=== PATIENT | male | born 1960 | race African-American/Black ===

== ENCOUNTER → 2024-04-02 | Outpatient (CLI) | payer MEDICARE, MEDICAID, SELFPAY ==
[2024-04-02 10:57] LABS: Basophils % (Auto) 0 % (0-2.5); Eosinophils # (Auto) 0.2 Thou/mm3 (0.0-0.5); Eosinophils % (Auto) 2 % (0-10); Hematocrit 38.7 % (41.0-53.0); Hemoglobin 12.3 g/dL (13.5-16.0); Immature Granulocytes % (Auto) 0 % (0-0); Immature Granulocytes Auto 0.03 Thou/mm3 (0.00-0.00); Lymphocytes # (Auto) 2.1 Thou/mm3 (1.0-4.8); Lymphocytes % (Auto) 24 % (10-50); Mean Corpuscular HGB Conc 31.8 g/dl (31.0-37.0); Mean Corpuscular Hemoglobin 29.1 pg (25.0-35.0); Mean Corpuscular Volume 92 fL (80-100); Monocytes # (Auto) 0.5 Thou/mm3 (0.0-0.8); Monocytes % (Auto) 6 % (0-12); Neutrophils # (Auto) 5.7 Thou/mm3 (1.8-7.7); Neutrophils % (Auto) 66 % (37-80); Nucleated Red Blood Cell % 0 /100 WBC (0); Platelet Count 324 Thou/mm3 (140-440); RDW Standard Deviation 57.4 fL (35.1-43.9); Red Blood Count 4.23 Miln/mm3 (4.50-5.90); White Blood Count 8.6 Thou/mm3 (3.8-10.6)
[2024-04-02 11:16] LABS: Prothrombin Time 10.8 Seconds (9.0-12.2)
== END | disposition home or self-care (01) ==
LOC: COPL 10:13
PROVIDERS: PCP Physician Assistant; Referring Provider Surgery; Visit Provider Surgery
DX: C18.0 Malignant neoplasm of cecum (principal)
CPT/HCPCS: 36415; 85025; 85610; 85730

== ENCOUNTER 2024-04-11 09:29 | Outpatient (RCR) | payer MEDICARE, MEDICAID, SELFPAY | END 2024-04-19 23:59 | disposition home or self-care (01) | LOC: SCTC 09:29 | PROVIDERS: PCP Physician Assistant; Referring Provider Physician Assistant; Visit Provider Internal Medicine Hematology & Oncology | DX: C18.9 Malignant neoplasm of colon, unspecified (principal) ==

== ENCOUNTER → 2024-04-29 | Outpatient (CLI) | payer MEDICARE, MEDICAID, SELFPAY ==
[2024-04-29 09:31] LABS: Basophils % (Auto) 0 % (0-2.5); Eosinophils # (Auto) 0.2 Thou/mm3 (0.0-0.5); Eosinophils % (Auto) 2 % (0-10); Hematocrit 37.3 % (41.0-53.0); Hemoglobin 12.3 g/dL (13.5-16.0); Immature Granulocytes % (Auto) 0 % (0-0); Immature Granulocytes Auto 0.03 Thou/mm3 (0.00-0.00); Lymphocytes # (Auto) 2.5 Thou/mm3 (1.0-4.8); Lymphocytes % (Auto) 27 % (10-50); Mean Corpuscular Volume 91 fL (80-100); Monocytes # (Auto) 0.6 Thou/mm3 (0.0-0.8); Monocytes % (Auto) 6 % (0-12); Neutrophils % (Auto) 65 % (37-80); Nucleated Red Blood Cell % 0 /100 WBC (0); Platelet Count 402 Thou/mm3 (140-440); RDW Standard Deviation 55.1 fL (35.1-43.9); White Blood Count 9.3 Thou/mm3 (3.8-10.6)
[2024-04-29 09:45] LABS: Alanine Aminotransferase 19 U/L (10-49); Albumin, Serum 5.2 gm/dL (3.4-4.8); Albumin/Globulin Ratio 2.6 (1.2-2.2); Alkaline Phosphatase 110 U/L (46-116); Anion Gap 7 (7-16); Aspartate Amino Transferase 14 U/L (0-34); BUN/Creatinine Ratio 9 Ratio (12-20); Bilirubin,Total 0.4 mg/dL (0.3-1.2); Blood Urea Nitrogen 8 mg/dL (9-23); Calcium 10.2 mg/dL (8.3-10.6); Calcium (Corrected) 10.2 mg/dL (8.5-10.1); Carbon Dioxide 29.6 mMol/L (20.0-31.0); Chloride 102 mMol/L (98-107); Creatinine (Component) 0.9 mg/dL (0.6-1.3); Glucose 102 mg/dL (74-106); Osmolality,Calculated 275 (275-295); Potassium 3.7 mMol/L (3.4-5.1); Sodium 139 mMol/L (136-145); Total Protein 7.2 gm/dL (5.7-8.2); eGFR > 60 See Note
[2024-04-29 09:50] LABS: Carcinoembryonic Antigen 6.8 ng/mL (0.0-5.0); Folate 17.33 ng/mL (>5.38); Vitamin B12 540 pg/mL (211-911)
[2024-04-29 10:57] LABS: Ferritin 14 ng/mL (10.5-307.3); Total Iron Binding Capacity 379 mcg/dL (250-425)
[2024-04-29 11:07] LABS: Iron 91 mcg/dL (65-175); Percent Iron Saturation 24 % (20-55); Unsaturated Iron Binding 288 (225-295)
[2024-05-05 06:51] LABS: CA 19-9 Antigen* 26 U/mL (<34)
== END | disposition home or self-care (01) ==
LOC: SCTO 08:24
PROVIDERS: PCP Physician Assistant; Referring Provider Internal Medicine Hematology & Oncology; Visit Provider Internal Medicine Hematology & Oncology
DX: C22.9 Malignant neoplasm of liver, not specified as primary or secondary (principal); C64.9 Malignant neoplasm of unspecified kidney, except renal pelvis; C18.9 Malignant neoplasm of colon, unspecified
CPT/HCPCS: 36415; 80053; 82378; 82607; 82728; 82746; 83540; 83550; 85025; 86301

== ENCOUNTER 2024-05-05 13:15 | Outpatient (RCR) | payer MEDICARE, MEDICAID, SELFPAY ==
--- NOTE | 2024-05-19 01:02 | CTCFLWUP_ITS ---
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 Patient have a history of smoking for 10 years 3 to 4 cigarettes a day quit about 37 years ago and uses marijuana da alfie for last 20 years. Patient lives with his brother and sunvzh-fz-eus. 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 Tumor site cecum 5 x 3.5 x 0.8 cm. Macroscopic tumor perfo ration not seen. Invasive adenocarcinoma low-grade invading into subserosal tissue. 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 amlodipine - 5 mg 1 tab Daily 2. atorvastatin - 40 mg 1 tab Daily 3. multivitamin - 1 tab Daily 4. tamsulosin - 0.4 mg 1 Capsule Daily Medications Last Reconciled by Naomy Tate MA on 05/05/2024 ALLERGIES: No Known Drug Allergies REVIEW OF SYSTEMS: A complete 14-point review of systems was performed and is negative except as noted in interval histo ry. PHYSICAL EXAMINATION: VITAL SIGNS: Temperature?98.2, B/P?120/76, Oxygen?Saturation?98% Weight?138?lbs (Change?since? 4:?-2.8?lbs) PAIN: 0 - No pain ECOG Performance Status: 0 - Asymptomatic and fully active GENERAL APPEARANCE: Appears well, in no apparent distress, appropriately interactive. HEENT: Normocephalic, no temporal wasting, normal conjunctiva, no scleral icterus, normal hearing, li ps without lesions, neck normal range of motion. CARDIOVASCULAR: Not assessed. PULMONARY: Normal respiratory effort, no respiratory distress or use of accessory muscles, speaking i n full sentences, no tachypnea. EXTREMITIES: No pedal edema or cyanosis. SKIN: Normal skin appearance. NEUROLOGIC: Alert and oriented x4. PSHYCHIATRIC: Appropriate affect, mood normal, behavior normal, intact thought and speech. LABORATORY DATA: I have personally reviewed and interpreted each of the patient?s relevant lab tests, abnormal finding s are below: Date 05/10/24 ??WHITE?BLOOD?COUNT?(Thou/mm3) 9.5 ??RED?BLOOD?COUNT?(Miln/mm3) 3.58?L ??HEMOGLOBIN?(gm/dl) 10.9?L ??HEMATOCRIT?(%) 33.1?L ??PLATELET?COUNT?(Thou/mm3) 380 ??NEUTROPHILS?%,?AUTO?(%) 75 ??LYMPH?%,?AUTO?(%) 19 ??NEUTROPHILS,?AUTO?(Thou/mm3) 7.1 ASSESSMENT/PLAN: #1 colon adenocarcinoma Patient have T3 N1 tumor CT abdomen showed renal mass which was biopsied to be renal cancer Patient will need adjuvant chemotherapy Chemotherapy for 6 months with modified FOLFOX Needs CT chest abdomen pelvis for complete staging FANNIE Stable mFOLFOX 6 Oxaliplatin 85 mg/m2 IV, day 1a Leucovorin 400 mg/m2 IV, day 1b 5-FU 400 mg/m2 IV bolus on day 1, followed by 1200 mg/m2 /day x 2 days (total 2400 mg/m2 over 46?48 hours) continuous infusion. Repeat every 2 weeks.1 ORDERS: Cbc,cmp RETURN TO CLINIC: 2 months BILLING AND COMPLIANCE: I reviewed external records from providers outside my specialty as summarized above. I spent a total of 50 minutes on this patient?s care on the day of their visit excluding time spent related to any bi lled procedures. This time includes time spent with the patient as well as time spent documenting in the medical record, reviewing patients records and tests, obtaining history, placing orders, communi cating with other healthcare professionals, counseling the patient, family or caregiver, and/or care coordination for the diagnoses above. Electronically Signed by: Dhaval Guzman MD T: 1:00 AM CC: PCP: Chanelle Ramirze Referring: Chanelle Ramirez This document was completed utilizing speech recognition software. Grammatical errors, random word in sertions, pronoun errors, and incomplete sentences are an occasional consequence of this system due t o software limitations, ambient noise, and hardware issues. Any formal questions or concerns about th e content, text or information contained within the body of this dictation should be directly address ed to the provider for clarification.
== END 2024-05-20 23:59 | disposition home or self-care (01) ==
LOC: SCTC 13:15
PROVIDERS: PCP Physician Assistant; Referring Provider Physician Assistant; Visit Provider Internal Medicine Hematology & Oncology
DX: C18.0 Malignant neoplasm of cecum (principal); C64.2 Malignant neoplasm of left kidney, except renal pelvis; Z87.891 Personal history of nicotine dependence; Z90.49 Acquired absence of other specified parts of digestive tract
CPT/HCPCS: 99212; G0463

== ENCOUNTER 2024-05-09 08:00 | Day surgery (SDC) | payer MEDICARE, MEDICAID, SELFPAY ==
[2024-05-07 09:10] VITALS: BMI 20.7
[2024-05-07 10:46] LABS: Basophils # (Auto) 0.1 Thou/mm3 (0.0-0.2); Basophils % (Auto) 0 % (0-2.5); Eosinophils # (Auto) 0.2 Thou/mm3 (0.0-0.5); Eosinophils % (Auto) 2 % (0-10); Hematocrit 37.2 % (41.0-53.0); Hemoglobin 12.1 g/dL (13.5-16.0); Immature Granulocytes % (Auto) 0 % (0-0); Immature Granulocytes Auto 0.05 Thou/mm3 (0.00-0.00); Lymphocytes # (Auto) 2.4 Thou/mm3 (1.0-4.8); Lymphocytes % (Auto) 17 % (10-50); Mean Corpuscular HGB Conc 32.5 g/dl (31.0-37.0); Mean Corpuscular Hemoglobin 30.3 pg (25.0-35.0); Mean Corpuscular Volume 93 fL (80-100); Monocytes # (Auto) 0.8 Thou/mm3 (0.0-0.8); Monocytes % (Auto) 6 % (0-12); Neutrophils # (Auto) 10.4 Thou/mm3 (1.8-7.7); Neutrophils % (Auto) 75 % (37-80); Nucleated Red Blood Cell % 0 /100 WBC (0); Platelet Count 411 Thou/mm3 (140-440); RDW Standard Deviation 55.3 fL (35.1-43.9); White Blood Count 13.9 Thou/mm3 (3.8-10.6)
[2024-05-07 11:02] LABS: Prothrombin Time 11.1 Seconds (9.0-12.2)
[2024-05-07 11:07] LABS: Alanine Aminotransferase 17 U/L (10-49); Albumin/Globulin Ratio 2.1 (1.2-2.2); Alkaline Phosphatase 109 U/L (46-116); Anion Gap 7 (7-16); Aspartate Amino Transferase 12 U/L (0-34); BUN/Creatinine Ratio 6 Ratio (12-20); Bilirubin,Total 0.5 mg/dL (0.3-1.2); Blood Urea Nitrogen < 5 mg/dL (9-23); Calcium 10.3 mg/dL (8.3-10.6); Calcium (Corrected) 10.3 mg/dL (8.5-10.1); Carbon Dioxide 29.6 mMol/L (20.0-31.0); Chloride 104 mMol/L (98-107); Creatinine (Component) 0.8 mg/dL (0.6-1.3); Globulin 2.4 gm/dL (2.3-3.5); Glucose 104 mg/dL (74-106); Osmolality,Calculated 278 (275-295); Potassium 4.6 mMol/L (3.4-5.1); Sodium 141 mMol/L (136-145); Total Protein 7.4 gm/dL (5.7-8.2); eGFR > 60 See Note
--- NOTE | 2024-05-07 11:58 | SUR.PREOP ---
WBC 13.9, Dr Lamb notified and ok to proceed.
[2024-05-09] VITALS (27 sets, daily range): BP systolic 97–142; BP diastolic 57–88; PULSE 56–87; RESP 12–20; TEMP 36.1–36.9; O2SAT 97–100; BMI 20.5
--- NOTE | 2024-05-09 | XR_ITS ---
Examination: IR fluoroscopically guided placement right chest tube Fluoroscopy AP chest single view Exam date and time: 12/08/2023 1357 hours INDICATIONS: Pneumothorax post Port-A-Cath placement today requiring chest tube placement TECHNIQUE AND FINDINGS: Informed consent provided. Timeout performed. Skin prepped over the lateral chest and sterile drape applied hand hygiene 1% lidocaine administered for local anesthesia Successful fluoroscopically guided insertion 9 Indian Heimlich chest tube Fluoroscopy 0.4 minute radiation dose 1.15 milligray 1 spot fluoroscopic chest film Estimated blood loss 2 cc IMPRESSION: Successful IR fluoroscopically guided placement right chest tube
--- NOTE | 2024-05-09 09:34 | CHAP ---
Patient expressed gratitude for prayer before their procedure.
--- NOTE | 2024-05-09 10:30 | XR_ITS ---
Examination: AP chest single view TECHNIQUE: AP portable supine chest single view Exam date and time: May 09, 2024 1155 hours INDICATIONS: Port-A-Cath insertion today. FINDINGS: Right subclavian Port-A-Cath tip right atrium No pneumothorax IMPRESSION: Right subclavian Port-A-Cath tip right atrium
--- NOTE | 2024-05-09 12:22 | SUR.PHASEI ---
1222: Pt. wakes to name then drifts back to sleep, vitals stable, breathing unlabored, no complaint of pain or nausea, dressing to right upper chest CDI, no active bleed noted, report received from MD De La Paz and Zayra WILLINGHAM.
--- NOTE | 2024-05-09 12:22 | XR_ITS ---
Examination: AP chest single view Technique one AP portable upright chest single view Exam date and time: May 09, 2024 1251 hours INDICATIONS: Post Port-A-Cath insertion today. FINDINGS: Right apical lateral pneumothorax, estimated 50% No significant shift of the trachea to the left Right subclavian Port-A-Cath tip satisfactory position IMPRESSION: Right apical lateral pneumothorax
--- NOTE | 2024-05-09 12:34 | SUR.PHASEI ---
pt drowsy but arouses to verbal commands, vitals stable, breathing unlabored, no complaint of pain or nausea, dressing to right upper chest clean, dry, and intact, report from Aurora WILLINGHAM
--- NOTE | 2024-05-09 12:34 | SUR.PHASEI ---
1234: Pt. AAOx4, vitals stable, breathing unlabored no complaint of pain or nausea, dressing to right upper chest CDI, currently waiting for XR, report given to Vandana Mcfarland RN to resume care of pt.
--- NOTE | 2024-05-09 12:45 | SUR.PHASEI ---
pt tolerating ice chips without difficulty swallowing or n/v
--- NOTE | 2024-05-09 12:50 | SUR.PHASEII ---
xray at bedside
--- NOTE | 2024-05-09 13:05 | SUR.PHASEII ---
Dr Lamb at bedside, per Dr Lamb; keep pt in high fowlers position, hold in PACU until further instructions given; awaiting decision to admit.
--- NOTE | 2024-05-09 13:12 | SUR.PHASEII ---
pt awake, alert, able to follow commands, breathing unlabored, dressing to right upper chest clean, dry, and intact, report to Aurora WILLINGHAM
--- NOTE | 2024-05-09 13:53 | SUR.PHASEII ---
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 for insertion of chest tube. Pt. is to come back to recovery after recovery from chemical laboratory tester. Pt. currently AAOx4, vitals stable, breathing unlabored, no complaint of pain or nausea, dressing to right upper chest CDI, no active bleed noted. Pt. brother aware of whats going on and gave verbal consent with RN witness to proceed with chest tube insertion.
[2024-05-09] MEDS: LIDOCAINE INJ PF 1% 30 ML VIAL INFL (14:10)
[2024-05-09] MEDS: fentaNYL CIT INJ 50 mCg/ML AMP 2ML IVP (14:27)
--- NOTE | 2024-05-09 14:47 | SUR.PHASEII ---
1447: Pt. returned from vp lab, chest tube on right side, set up to low-moderate intermitten suction, pt. AAOx4, vitals stable, breathing unlabored, no complaint of pain or nausea, dressing to right upper chest CDI ,no active bleed noted.
--- NOTE | 2024-05-09 14:47 | SUR.PHASEII ---
1447: Report received from Danna WILLINGHAM about chest tube placement.
--- NOTE | 2024-05-09 15:02 | XR_ITS ---
Examination: AP chest single view Technique one AP portable upright chest single view Exam date and time: May 09, 2024 1506 hours COMPARISON: May 09, 2024 1247 hours INDICATIONS: Pneumothorax post Port-A-Cath placement today FINDINGS: Right chest tube noted projecting in the lower medial right hemithorax Minute right apical pneumothorax less than 3% IMPRESSION: Satisfactory expansion right lung
--- NOTE | 2024-05-09 15:25 | PD.SUROPNT ---
Date of Procedure 05/09/24 Pre Op Diagnosis Carcinoma of the colon requiring chemotherapy Post Op Diagnosis Same Procedure Insertion of a Port-A-Cath through the right subclavian vein Findings Patient was found to have patent subclavian vein which was used for access Procedure Description After the patient was brought to the operating room he was placed in supine position. Site-Rite ultrasound was used to identify the right subclavian vein and I chose this for insertion of the Port-A-Cath. After the patient's chest and neck were prepped with chloreprep solution and draped I used a mini stick to get into the left subclavian vein. Then I passed a small guidewire measuring 0.018 inch in diameter into the vein. Then this was switched over to a catheter to accommodate larger guidewire measuring 0.035 inches in diameter which was basically a J-wire. Then I used a 9 [place] Islander valved vessel dilator over the guidewire which was then pulled out. Then I introduced a 8 [place] Islander polyurethane catheter from the [employer] and positioned it on the distal part of the superior vena cava. An x-ray was obtained to confirm the position of the tip. The tip was about 22 cm from the entry site then I made a small pocket 5 cm's below the entry site on the right chest below the clavicle to accommodate the port after injecting local anesthesia with 1% Xylocaine. Then I tunneled the polyurethane catheter from the entry site to this pocket in the chest wall and I connected it to low-profile Dignity port from [employer] using a catheter lock. Excellent blood return was obtained at the end of the procedure and this was flushed with heparinized saline. Then the port was attached to the chest wall muscle using 0 Vicryl sutures. Subcutaneous tissues was closed with 3-0 chromic and the skin by 5-0 nylon stitches. Dressing was applied with Adaptic and 4 x 4 and the patient tolerated the procedure well and left operating room in stable condition. At the end of the procedure chest x-ray was obtained in the recovery room which showed a small pneumothorax on therefore patient will be admitted to the hospital after chest tube insertion. This chest tube will be inserted by the IR today Anesthesia other (General LMA) Pathology / specimen None Estimated Blood Loss 20 Surgeon Conrado Haywood MD Surgical Staff Operation Date: 12/20/24 10:15 Case Staff Anesthesiologist: Duy De La Paz RN First Assistant: Deepika Ray
[2024-05-09] MEDS: KETOROLAC INJ 30 MG/ML VIAL IVP ×2 (15:34→21:20)
--- NOTE | 2024-05-09 18:29 | SUR.PHASEII ---
1829:received report at this time. pt alert and oriented. no c/o pain or discomfort. no s/s of resp. distress or discomfort. dressing to right upper chest clean, dry and intact. no bleeding from dressing. chest tube in plac and intact.
--- NOTE | 2024-05-09 19:32 | SUR.PHASEII ---
report given to TARSHA Dan.
--- NOTE | 2024-05-09 19:37 | SUR.PHASEII ---
Called brother april for room update.
--- NOTE | 2024-05-09 19:40 | SUR.PHASEII ---
called Dr. Haywood for room update.
--- NOTE | 2024-05-09 19:45 | SUR.PHASEII ---
1944: pt transferred to room 368 via rney. pt alert and oriented. no c/o pain or discomfort. no s/s of resp. distress or discomfort. dressing to right upper chest clean, dry and intact. no bleeding from dressing. chest tube in place and intact.
--- NOTE | 2024-05-09 20:00 | SUR.PHASEII ---
2000: pt transferred to room 368 via rowen. pt alert and oriented. no c/o pain or discomfort. no s/s of resp. distress or discomfort. dressing to right upper chest clean, dry and intact. no bleeding from dressing. chest tube in place and intact.
[2024-05-09] MEDS: SODIUM CHLORIDE 0.9% 1000 ML 1,000 ML 50 ML IV (21:27)
[2024-05-09] MEDS: ACETAMINOPHEN 325 MG TABLET 650 MG PO (23:57)
[2024-05-10] VITALS: BP 155/91; PULSE 69; RESP 18; TEMP 36.8; O2SAT 99
[2024-05-10 04:00] VITALS: BP 129/77; PULSE 71; RESP 17; TEMP 37.3; O2SAT 99
[2024-05-10 05:22] LABS: Basophils % (Auto) 0 % (0-2.5); Eosinophils # (Auto) 0.1 Thou/mm3 (0.0-0.5); Eosinophils % (Auto) 1 % (0-10); Hematocrit 33.1 % (41.0-53.0); Hemoglobin 10.9 g/dL (13.5-16.0); Immature Granulocytes % (Auto) 0 % (0-0); Immature Granulocytes Auto 0.03 Thou/mm3 (0.00-0.00); Lymphocytes # (Auto) 1.8 Thou/mm3 (1.0-4.8); Lymphocytes % (Auto) 19 % (10-50); Mean Corpuscular HGB Conc 32.9 g/dl (31.0-37.0); Mean Corpuscular Hemoglobin 30.4 pg (25.0-35.0); Mean Corpuscular Volume 93 fL (80-100); Monocytes # (Auto) 0.5 Thou/mm3 (0.0-0.8); Monocytes % (Auto) 5 % (0-12); Neutrophils # (Auto) 7.1 Thou/mm3 (1.8-7.7); Neutrophils % (Auto) 75 % (37-80); Nucleated Red Blood Cell % 0 /100 WBC (0); Platelet Count 380 Thou/mm3 (140-440); RDW Standard Deviation 52.1 fL (35.1-43.9); Red Blood Count 3.58 Miln/mm3 (4.50-5.90); White Blood Count 9.5 Thou/mm3 (3.8-10.6)
--- NOTE | 2024-05-10 05:57 | PC.NURSE ---
1952 pt arrived to floor gcs 15. No c/o pain ro discomfort respirations even and unlabored 0 sob. PT s/p pneumo after port a cath placement. Chest tube is one way valve suctioned to LIS water bubbling. Occlusive dressing and meghna clamps at bedside. Safety reviewed with patient call light with in reach.
[2024-05-10 08:00] VITALS: BP 155/85; PULSE 86; RESP 19; TEMP 36.7; O2SAT 99
[2024-05-10 12:00] VITALS: BP 138/83; PULSE 80; RESP 17; TEMP 37.1; O2SAT 100
--- NOTE | 2024-05-10 12:04 | XR_ITS ---
Examination: AP chest single view Technique one AP portable upright chest single view Exam date and time: 12/09/2023 1211 hrs. Comparison May 09, 2024 Indications: History right pneumothorax post chest tube placement Findings: Right chest tube noted medial lower right hemithorax Full expansion right lung Normal heart size Impression: Full expansion right lung
--- NOTE | 2024-05-10 12:39 | PD.SURPROG ---
Documentation for date of: 05/10/24 Subjective Subjective Narrative: The patient has no difficulty in breathing but is complaining of some chest pain due to the tube Exam Vital Signs Temp Pulse Resp BP Pulse Ox O2 Del Method O2 Flow Rate 98.1 F 86 19 155/85 H 99 Room Air 5 05/10/24 08:00 05/10/24 08:00 05/10/24 08:00 05/10/24 08:00 05/10/24 08:00 05/10/24 08:00 05/09/24 14:31 His vital signs are normal and his respiratory rate is around 19 Routine Respiratory Exam Comments: Auscultation revealed no significant change on breath sounds on either side Results Results: Imaging Imaging narrative: Repeat x-ray this morning still showed a small pneumothorax in the apex which has not changed after the tube was inserted. Assessment & Plan Assessment Additional comments: Impression: Small apical pneumothorax persistent in spite of chest tube Plan Plan: We shall continue suction on the Pleur-evac Repeat a chest x-ray today. Keep the patient for another day Procedures Procedures Insertion of a Port-A-Cath through the right subclavian vein
[2024-05-10] MEDS: HYDROcodone/APAP 5/325 TABLET 1 TAB PO (15:20)
[2024-05-10 16:00] VITALS: BP 133/82; PULSE 77; RESP 17; TEMP 37.1; O2SAT 100
--- NOTE | 2024-05-10 17:35 | XR_ITS ---
Examination: AP chest single view Technique one AP portable semiupright chest single view Exam date and time: May 10, 2024 1745 hrs. Comparison May 10, 2024 12:11 PM Indications: History pneumothorax post Port-A-Cath placement, post chest tube placement Findings: Right and left lungs fully expanded Stable position chest tube Normal heart size Impression: Right and left lungs fully expanded
--- NOTE | 2024-05-10 18:28 | PD.SURPROG ---
Documentation for date of: 05/10/24 Subjective Subjective Narrative: Patient is breathing well Exam Vital Signs Temp Pulse Resp BP Pulse Ox O2 Del Method O2 Flow Rate 98.7 F 77 17 133/82 H 100 Room Air 5 05/10/24 16:00 05/10/24 16:00 05/10/24 16:00 05/10/24 16:00 05/10/24 16:00 05/10/24 16:00 05/09/24 14:31 Assessment & Plan Assessment Additional comments: Chest x-ray showed persistent expansion of the right lung Plan Chest tube pulled out. Patient wants to stay for 1 more night rather than going home now. Procedures Procedures Insertion of a Port-A-Cath through the right subclavian vein
--- NOTE | 2024-05-10 18:28 | PC.NURSE ---
Dr. Lamb at bedside, removed chest tube. Pt tolerated removal well.
[2024-05-10 20:00] VITALS: BP 126/76; PULSE 76; RESP 18; TEMP 36.4; O2SAT 100
[2024-05-11] VITALS: BP 109/70; PULSE 72; RESP 20; TEMP 36.9; O2SAT 98
[2024-05-11 04:00] VITALS: BP 114/77; PULSE 72; PULSE 77; RESP 18; TEMP 36.4; O2SAT 100
--- NOTE | 2024-05-11 06:22 | XR_ITS ---
Examination: AP chest single view Technique one AP portable upright chest single view Exam date and time: May 11, 2024 0641 hrs. Comparison May 10, 2024 Indications: History right pneumothorax this week post chest tube placement Findings: Right chest tube has been removed compared with May 10, 2024 Right lung fully expanded Right subclavian Port-A-Cath tip satisfactory position Impression: Status post removal right chest tube with full expansion right and left lungs
[2024-05-11 07:32] VITALS: BP 128/72; PULSE 71; RESP 19; TEMP 36.5; O2SAT 100
--- NOTE | 2024-05-11 08:20 | PD.SURPROG ---
Documentation for date of: 05/11/24 Subjective Subjective Narrative: The patient is feeling better today after the chest tube was removed last night. He does not have any pain and is breathing well and his oxygen saturation is 100% Exam Vital Signs Temp Pulse Resp BP Pulse Ox O2 Del Method O2 Flow Rate 97.7 F 71 19 128/72 100 Room Air 5 05/11/24 07:32 05/11/24 07:32 05/11/24 07:32 05/11/24 07:32 05/11/24 07:32 05/11/24 07:32 05/09/24 14:31 Results Results: Imaging Imaging narrative: Chest x-ray done this morning showed expanded right lung Assessment & Plan Assessment Additional comments: Impression: Resolved pneumothorax right side Plan Plan: We shall discharge patient today and follow him up in 2 weeks in my office Procedures Procedures Insertion of a Port-A-Cath through the right subclavian vein
--- NOTE | 2024-05-12 12:20 | ESDS_ITS ---
RE: CONCHITA YEUNG : 1960 DATE OF ADMISSION: 05/11/2024 DATE OF DISCHARGE: 05/11/2024 08:58 DATE OF ADMISSION: 04/09/2024 DATE OF DISCHARGE: 04/11/2024 FINAL DIAGNOSES: Pneumothorax following Portacath insertion on the right side. PROCEDURE DONE: Insertion of Portacath. OTHER DIAGNOSIS: Carcinoma of the colon, treated with sigmoid colon resection. HOSPITAL COURSE: This patient was admitted for observation after realizing that patient has developed a pneumothorax following subclavian puncture used for Portacath insertion. Therefore, he had a small chest tube inserted by the radiologist and patient was kept in the hospital for another day. Chest tube was removed on 04/10/2024, but the patient was still experiencing pain and did not want to go home. Therefore, he was observed overnight and chest x-ray was repeated on 04/11/2024, which was showing well-expanded right lung. The patient is discharged to home and he was advised to resume all prehospital medications and was taking Tylenol for the pain. The patient will be seen in 2 weeks for suture removal. DT: 08:25:40 TT: 15:19:00 Ref: [id number] - TID: [id number]
== END 2024-05-11 08:58 | disposition home or self-care (01) ==
LOC: S2EX 12:41 → S3SX 05-11 07:48
PROVIDERS: PCP Physician Assistant; Referring Provider Surgery; Visit Provider Surgery
PROC: (CPT 36561; principal; 2024-05-09 10:00)
DX: I87.1 Compression of vein (principal); C18.9 Malignant neoplasm of colon, unspecified; J93.9 Pneumothorax, unspecified; C18.7 Malignant neoplasm of sigmoid colon
CPT/HCPCS: 36561; 36415; 71045; 71046; 80053; 85025; 85610; 85730; 94664; A4217; A4649; C1894; J1643; J1885; J2250; J2371; J2405; J2704; J2765; J3010; J3490; J7030; A9270; J1644

== ENCOUNTER → 2024-05-30 | Outpatient (CLI) | payer MEDICARE, MEDICAID, SELFPAY ==
[2024-05-30 12:46] LABS: Prostate Specific Antigen 9.25 ng/mL (0-4.00)
== END | disposition home or self-care (01) ==
PROVIDERS: PCP Physician Assistant; Referring Provider Urology; Visit Provider Urology
DX: C61 Malignant neoplasm of prostate (principal)
CPT/HCPCS: 36415; 84153

== ENCOUNTER → 2024-05-30 | Outpatient (BNVA) | payer MEDICARE, MEDICAID, SELFPAY | END | disposition home or self-care (01) | PROVIDERS: PCP Physician Assistant; Referring Provider Physician Assistant; Visit Provider Urology | DX: N40.1 Benign prostatic hyperplasia with lower urinary tract symptoms (principal); N13.8 Other obstructive and reflux uropathy; C61 Malignant neoplasm of prostate; C18.0 Malignant neoplasm of cecum; C64.2 Malignant neoplasm of left kidney, except renal pelvis; I10 Essential (primary) hypertension; E78.00 Pure hypercholesterolemia, unspecified | CPT/HCPCS: 81003; 99212; G0463 ==

== ENCOUNTER → 2024-07-14 | Outpatient (BNVA) | payer MEDICARE, MEDICAID, SELFPAY | END | disposition home or self-care (01) | PROVIDERS: PCP Physician Assistant; Referring Provider Physician Assistant; Visit Provider Urology | DX: N40.1 Benign prostatic hyperplasia with lower urinary tract symptoms (principal); N13.8 Other obstructive and reflux uropathy; C61 Malignant neoplasm of prostate; C64.2 Malignant neoplasm of left kidney, except renal pelvis; C18.0 Malignant neoplasm of cecum; I10 Essential (primary) hypertension; E78.00 Pure hypercholesterolemia, unspecified | CPT/HCPCS: 99212; G0463 ==

== ENCOUNTER → 2024-07-25 | Outpatient (CLI) | payer MEDICARE, MEDICAID, SELFPAY ==
--- NOTE | 2024-07-25 12:23 | XR_ITS ---
Examination: PA lateral chest 2 views TECHNIQUE: Upright PA lateral chest 2 views Exam date and time: June 27, 2024 1239 hours Comparison May 11, 2024 INDICATIONS: History pneumothorax FINDINGS: Normal heart size Right subclavian Port-A-Cath tip satisfactory position Lungs well expanded No pneumonia or pulmonary edema IMPRESSION: No active disease
== END | disposition home or self-care (01) ==
PROVIDERS: PCP Physician Assistant; Referring Provider Specialist; Visit Provider Specialist
DX: R06.02 Shortness of breath (principal)
CPT/HCPCS: 71046

== ENCOUNTER → 2024-08-04 | Outpatient (CLI) | payer MEDICARE, MEDICAID, SELFPAY ==
--- NOTE | 2024-08-04 09:30 | XR_ITS ---
Examination: MRI abdomen with intravenous contrast. MRI abdomen without intravenous contrast. Date and time of exam: August 04, 2024 1021 hours Comparison MRI abdomen pre and postcontrast October 17, 2023 INDICATIONS: Dryness in the mouth, chemotherapy colon kidney cancer, MR abdomen October 17, 2023, 10 mm enhancing solid tumor medial right lobe of the liver Technique: Multiple axial, sagittal and coronal sections of the abdomen obtained. Transverse images, TR 6020, TE 107. T1 weighted transverse images, TR 582, TE 9.5. T2-weighted sagittal images, TR 4000, TE 105. T2-weighted sagittal images, TR 4000, TE 5. Coronal images, TR 4210, TE 107. Axial and coronal images are obtained post 19 cc intravenous injection, gadolinium. Findings: Small multiple liver cysts Spleen not enlarged Aorta normal size No abdominal lymphadenopathy No ascites Stable 10 mm weakly enhancing lesion medial right lobe of the liver On this study enhancing mass anterior right lobe of the liver, 17 mm, axial image 32 Posterior enhancing solid mass left kidney again noted, 21 mm IMPRESSION: Stable 10 mm weakly enhancing lesion medial right lobe of the liver compared with the MRI abdomen October 17, 2023 On this study suspicious for 17 mm weakly enhancing lesion anterior right lobe of the liver, not depicted on the MRI abdomen October 17, 2023 Stable posterior enhancing solid mass left kidney, 21 mm, compared with October 17, 2023
== END | disposition home or self-care (01) ==
PROVIDERS: PCP Physician Assistant; Referring Provider Internal Medicine Hematology & Oncology; Visit Provider Internal Medicine Hematology & Oncology
DX: K76.89 Other specified diseases of liver (principal); N28.89 Other specified disorders of kidney and ureter; C22.9 Malignant neoplasm of liver, not specified as primary or secondary; C64.9 Malignant neoplasm of unspecified kidney, except renal pelvis
CPT/HCPCS: 74183; A4699; A9579

== ENCOUNTER 2024-08-14 10:43 | Outpatient (RCR) | payer MEDICARE, MEDICAID, SELFPAY ==
[2024-07-28 10:24] LABS: Basophils % (Auto) 1 % (0-2.5); Eosinophils # (Auto) 0.1 Thou/mm3 (0.0-0.5); Eosinophils % (Auto) 2 % (0-10); Hematocrit 32.2 % (41.0-53.0); Hemoglobin 10.7 g/dL (13.5-16.0); Immature Granulocytes % (Auto) 1 % (0-0); Immature Granulocytes Auto 0.03 Thou/mm3 (0.00-0.00); Lymphocytes # (Auto) 1.9 Thou/mm3 (1.0-4.8); Lymphocytes % (Auto) 32 % (10-50); Mean Corpuscular HGB Conc 33.2 g/dl (31.0-37.0); Mean Corpuscular Hemoglobin 30.6 pg (25.0-35.0); Mean Corpuscular Volume 92 fL (80-100); Monocytes # (Auto) 0.6 Thou/mm3 (0.0-0.8); Monocytes % (Auto) 9 % (0-12); Neutrophils # (Auto) 3.4 Thou/mm3 (1.8-7.7); Neutrophils % (Auto) 56 % (37-80); Nucleated Red Blood Cell % 0 /100 WBC (0); Platelet Count 217 Thou/mm3 (140-440); RDW Standard Deviation 50.1 fL (35.1-43.9); White Blood Count 6.1 Thou/mm3 (3.8-10.6)
[2024-07-28 10:45] LABS: Carcinoembryonic Antigen 11.6 ng/mL (0.0-5.0)
[2024-07-28 10:52] LABS: Alanine Aminotransferase 36 U/L (10-49); Albumin, Serum 4.4 gm/dL (3.4-4.8); Albumin/Globulin Ratio 1.9 (1.2-2.2); Alkaline Phosphatase 92 U/L (46-116); Anion Gap 7 (7-16); Aspartate Amino Transferase 28 U/L (0-34); BUN/Creatinine Ratio 13 Ratio (12-20); Bilirubin,Total 0.5 mg/dL (0.3-1.2); Blood Urea Nitrogen 10 mg/dL (9-23); Calcium 9.7 mg/dL (8.3-10.6); Calcium (Corrected) 9.7 mg/dL (8.5-10.1); Carbon Dioxide 27.2 mMol/L (20.0-31.0); Chloride 106 mMol/L (98-107); Creatinine (Component) 0.8 mg/dL (0.6-1.3); Globulin 2.3 gm/dL (2.3-3.5); Glucose 95 mg/dL (74-106); Osmolality,Calculated 278 (275-295); Potassium 4.1 mMol/L (3.4-5.1); Sodium 140 mMol/L (136-145); Total Protein 6.7 gm/dL (5.7-8.2); eGFR > 60 See Note
[2024-08-11 14:22] LABS: Basophils % (Auto) 1 % (0-2.5); Eosinophils # (Auto) 0.1 Thou/mm3 (0.0-0.5); Eosinophils % (Auto) 1 % (0-10); Hematocrit 33.6 % (41.0-53.0); Immature Granulocytes % (Auto) 0 % (0-0); Immature Granulocytes Auto 0.01 Thou/mm3 (0.00-0.00); Lymphocytes # (Auto) 2.1 Thou/mm3 (1.0-4.8); Lymphocytes % (Auto) 40 % (10-50); Mean Corpuscular HGB Conc 32.7 g/dl (31.0-37.0); Mean Corpuscular Volume 95 fL (80-100); Monocytes # (Auto) 0.5 Thou/mm3 (0.0-0.8); Monocytes % (Auto) 9 % (0-12); Neutrophils # (Auto) 2.7 Thou/mm3 (1.8-7.7); Neutrophils % (Auto) 50 % (37-80); Nucleated Red Blood Cell # 0.02 Thou/mm3 (0.00-0.00); Nucleated Red Blood Cell % 0 /100 WBC (0); Platelet Count 181 Thou/mm3 (140-440); RDW Standard Deviation 58.4 fL (35.1-43.9); Red Blood Count 3.55 Miln/mm3 (4.50-5.90); White Blood Count 5.4 Thou/mm3 (3.8-10.6)
[2024-08-11 14:38] LABS: Alanine Aminotransferase 33 U/L (10-49); Albumin, Serum 4.5 gm/dL (3.4-4.8); Alkaline Phosphatase 95 U/L (46-116); Anion Gap 10 (7-16); Aspartate Amino Transferase 28 U/L (0-34); BUN/Creatinine Ratio 13 Ratio (12-20); Bilirubin,Total 0.4 mg/dL (0.3-1.2); Blood Urea Nitrogen 9 mg/dL (9-23); Calcium 10.1 mg/dL (8.3-10.6); Calcium (Corrected) 10.1 mg/dL (8.5-10.1); Carbon Dioxide 27.6 mMol/L (20.0-31.0); Chloride 104 mMol/L (98-107); Creatinine (Component) 0.7 mg/dL (0.6-1.3); Globulin 2.3 gm/dL (2.3-3.5); Glucose 87 mg/dL (74-106); Osmolality,Calculated 280 (275-295); Potassium 3.7 mMol/L (3.4-5.1); Sodium 142 mMol/L (136-145); Total Protein 6.8 gm/dL (5.7-8.2); eGFR > 60 See Note
[2024-08-11 14:47] LABS: Carcinoembryonic Antigen 11.5 ng/mL (0.0-5.0)
== END 2024-08-18 23:59 | disposition home or self-care (01) ==
LOC: SCTC 10:43
PROVIDERS: PCP Physician Assistant; Referring Provider Physician Assistant; Visit Provider Internal Medicine Hematology & Oncology
DX: Z51.11 Encounter for antineoplastic chemotherapy (principal); C18.0 Malignant neoplasm of cecum; C64.2 Malignant neoplasm of left kidney, except renal pelvis
CPT/HCPCS: 36591; 80053; 82378; 85025; 96366; 96367; 96368; 96411; 96413; 96415; 96416; A4216; J0640; J1100; J1453; J1642; J2405; J7050; J7060; J9190; J9263

== ENCOUNTER → 2024-08-20 | Outpatient (CLI) | payer MEDICARE, MEDICAID, SELFPAY ==
--- NOTE | 2024-08-20 10:00 | XR_ITS ---
Examination: CT chest with intravenous contrast CT abdomen with intravenous contrast CT pelvis with intravenous contrast CT chest without intravenous contrast CT abdomen without intravenous contrast CT pelvis without intravenous contrast 2-D coronal and sagittal reconstructions Time of exam: August 20, 2024 0957 hours Comparison MR abdomen August 04, 2024, CT abdomen pelvis April 08, 2024 INDICATIONS: Diagnosis malignant neoplasm of the colon September 2023, also diagnosis prostate cancer, CT abdomen April 08, 2024 10 mm medial right lobe liver lesion, solid enhancing posterior left renal tumor 25 mm, 10 mm between enhancing lesion medial right lobe the liver on MRI abdomen August 04, 2024, posterior enhancing solid mass left kidney 21 mm on MRI abdomen August 04, 2024 restaging CTDI: vol (mGy) : 16.2 DLP: (mGycm): 921 Technique: Multiple axial images of the chest, abdomen and pelvis with intravenous contrast, 3.0 mm slice thickness. Images obtained post intravenous injection Isovue 370 60 cc. 2-D sagittal and coronal reconstructions. Low dose protocols were performed. One or more of the following dose reduction techniques were used; automated exposure control, adjustment of the mA and/or KV according to patient size, use of iterative reconstruction technique. Findings: No thoracic aortic aneurysm dilatation or dissection No pulmonary artery filling defects Moderate calcification left anterior descending coronary artery No paratracheal tracheobronchial or bronchopulmonary adenopathy 2 mm pulmonary nodule right upper lobe axial image 89 No pneumonia or pulmonary edema or pleural disease Multiple hepatic cysts, the largest lateral right lobe the liver 13 mm Stable lesion medial right lobe of the liver [address] abdomen pelvis April 08, 2024 This lesion shows peripheral nodular enhancement on the current study characteristic for hemangioma Subtle lesion posterior margin left kidney again noted, measuring 22 mm in maximum transverse dimension compared to 21 mm on MRI abdomen August 04 2024 No interval abdominal or pelvic lymphadenopathy No bowel obstruction Colonic diverticulosis Nonspecific colitis pattern involving sigmoid colon 13 mm enhancing left prostate nodule axial image 298 IMPRESSION: No mediastinal lymphadenopathy 2 mm pulmonary nodule right upper lobe, with this study as baseline recommend 6 month follow-up CT chest without contrast Stable lesion medial right lobe of the liver, 10 mm, compared to [address] abdomen study April 08, 2024, this lesion shows peripheral nodular enhancement on this study characteristic for hemangioma Stable solid lesion posterior left lobe of the liver, 22 mm in maximum transverse dimension compared to 21 mm on MRI abdomen August 04, 2024 13 mm enhancing left prostate nodule, recommend transrectal prostate sonography follow-up
== END | disposition home or self-care (01) ==
PROVIDERS: PCP Physician Assistant; Referring Provider Internal Medicine Hematology & Oncology; Visit Provider Internal Medicine Hematology & Oncology
DX: R91.8 Other nonspecific abnormal finding of lung field (principal); K76.89 Other specified diseases of liver; N42.89 Other specified disorders of prostate; C22.9 Malignant neoplasm of liver, not specified as primary or secondary; C64.9 Malignant neoplasm of unspecified kidney, except renal pelvis; C18.9 Malignant neoplasm of colon, unspecified
CPT/HCPCS: 71270; 74178; A4649; Q9967

== ENCOUNTER → 2024-08-22 | Outpatient (BNVA) | payer MEDICARE, MEDICAID, SELFPAY | END | disposition home or self-care (01) | PROVIDERS: PCP Physician Assistant; Referring Provider Physician Assistant; Visit Provider Urology | DX: N35.819 Other urethral stricture, male, unspecified site (principal); N32.89 Other specified disorders of bladder; N40.1 Benign prostatic hyperplasia with lower urinary tract symptoms; N13.8 Other obstructive and reflux uropathy; C61 Malignant neoplasm of prostate; C64.2 Malignant neoplasm of left kidney, except renal pelvis; I10 Essential (primary) hypertension; E78.00 Pure hypercholesterolemia, unspecified | CPT/HCPCS: 52000; 81003; 96372; A4217; A4649; C1894; J1580; A9270 ==

== ENCOUNTER → 2024-09-05 | Outpatient (BNVA) | payer MEDICARE, MEDICAID, SELFPAY | END | disposition home or self-care (01) | PROVIDERS: PCP Physician Assistant; Referring Provider Physician Assistant; Visit Provider Student in an Organized Health Care Education/Training Program | DX: Z76.89 Persons encountering health services in other specified circumstances (principal) | CPT/HCPCS: 99212; G0463 ==

== ENCOUNTER 2024-09-17 09:17 | Outpatient (RCR) | payer MEDICARE, MEDICAID, SELFPAY ==
[2024-08-25 10:55] LABS: Basophils % (Auto) 1 % (0-2.5); Eosinophils # (Auto) 0.1 Thou/mm3 (0.0-0.5); Eosinophils % (Auto) 1 % (0-10); Hematocrit 32.2 % (41.0-53.0); Hemoglobin 10.8 g/dL (13.5-16.0); Immature Granulocytes % (Auto) 0 % (0-0); Immature Granulocytes Auto 0.02 Thou/mm3 (0.00-0.00); Lymphocytes # (Auto) 1.8 Thou/mm3 (1.0-4.8); Lymphocytes % (Auto) 36 % (10-50); Mean Corpuscular HGB Conc 33.5 g/dl (31.0-37.0); Mean Corpuscular Hemoglobin 31.8 pg (25.0-35.0); Mean Corpuscular Volume 95 fL (80-100); Monocytes # (Auto) 0.7 Thou/mm3 (0.0-0.8); Monocytes % (Auto) 13 % (0-12); Neutrophils # (Auto) 2.4 Thou/mm3 (1.8-7.7); Neutrophils % (Auto) 48 % (37-80); Nucleated Red Blood Cell % 0 /100 WBC (0); Platelet Count 189 Thou/mm3 (140-440); White Blood Count 4.9 Thou/mm3 (3.8-10.6)
[2024-08-25 11:22] LABS: Carcinoembryonic Antigen 13.5 ng/mL (0.0-5.0)
[2024-08-25 11:36] LABS: Alanine Aminotransferase 37 U/L (10-49); Albumin, Serum 4.3 gm/dL (3.4-4.8); Alkaline Phosphatase 94 U/L (46-116); Anion Gap 9 (7-16); Aspartate Amino Transferase 33 U/L (0-34); BUN/Creatinine Ratio 9 Ratio (12-20); Bilirubin,Total 0.5 mg/dL (0.3-1.2); Blood Urea Nitrogen 7 mg/dL (9-23); Calcium 9.6 mg/dL (8.3-10.6); Calcium (Corrected) 9.6 mg/dL (8.5-10.1); Carbon Dioxide 27.9 mMol/L (20.0-31.0); Chloride 102 mMol/L (98-107); Creatinine (Component) 0.8 mg/dL (0.6-1.3); Globulin 2.2 gm/dL (2.3-3.5); Glucose 129 mg/dL (74-106); Osmolality,Calculated 277 (275-295); Potassium 3.9 mMol/L (3.4-5.1); Sodium 139 mMol/L (136-145); Total Protein 6.5 gm/dL (5.7-8.2); eGFR > 60 See Note
[2024-09-08 10:26] LABS: Basophils # (Auto) 0.1 Thou/mm3 (0.0-0.2); Basophils % (Auto) 1 % (0-2.5); Eosinophils # (Auto) 0.1 Thou/mm3 (0.0-0.5); Eosinophils % (Auto) 2 % (0-10); Hematocrit 32.6 % (41.0-53.0); Immature Granulocytes % (Auto) 0 % (0-0); Immature Granulocytes Auto 0.01 Thou/mm3 (0.00-0.00); Lymphocytes # (Auto) 1.8 Thou/mm3 (1.0-4.8); Lymphocytes % (Auto) 31 % (10-50); Mean Corpuscular HGB Conc 33.7 g/dl (31.0-37.0); Mean Corpuscular Hemoglobin 32.4 pg (25.0-35.0); Mean Corpuscular Volume 96 fL (80-100); Monocytes # (Auto) 0.6 Thou/mm3 (0.0-0.8); Monocytes % (Auto) 9 % (0-12); Neutrophils # (Auto) 3.4 Thou/mm3 (1.8-7.7); Neutrophils % (Auto) 58 % (37-80); Nucleated Red Blood Cell # 0.02 Thou/mm3 (0.00-0.00); Nucleated Red Blood Cell % 0 /100 WBC (0); Platelet Count 153 Thou/mm3 (140-440); White Blood Count 5.9 Thou/mm3 (3.8-10.6)
[2024-09-08 10:55] LABS: Alanine Aminotransferase 51 U/L (10-49); Albumin, Serum 4.4 gm/dL (3.4-4.8); Albumin/Globulin Ratio 2.1 (1.2-2.2); Alkaline Phosphatase 92 U/L (46-116); Anion Gap 10 (7-16); Aspartate Amino Transferase 38 U/L (0-34); BUN/Creatinine Ratio 9 Ratio (12-20); Bilirubin,Total 0.4 mg/dL (0.3-1.2); Blood Urea Nitrogen 7 mg/dL (9-23); Calcium 9.3 mg/dL (8.3-10.6); Calcium (Corrected) 9.3 mg/dL (8.5-10.1); Carbon Dioxide 25.3 mMol/L (20.0-31.0); Chloride 103 mMol/L (98-107); Creatinine (Component) 0.8 mg/dL (0.6-1.3); Globulin 2.1 gm/dL (2.3-3.5); Glucose 148 mg/dL (74-106); Osmolality,Calculated 276 (275-295); Potassium 3.5 mMol/L (3.4-5.1); Sodium 138 mMol/L (136-145); Total Protein 6.5 gm/dL (5.7-8.2); eGFR > 60 See Note
[2024-09-08 12:20] LABS: Carcinoembryonic Antigen 12.9 ng/mL (0.0-5.0)
--- NOTE | 2024-09-18 10:25 | CTCFLWUP_ITS ---
Patient: DARIUS YEUNG : 1960 Page 2 of 2 FOLLOW UP NOTE DATE OF SERVICE: 09/17/2024 NAME: DARIUS YEUNG ACCOUNT: [id number] : 1960 AGE: 63 Visit summary Darius Yeung, a male with colon cancer diagnosed 09/19/2023, presented for follow-up during FOLFOX chemotherapy. His history includes small prostate cancer under surveillance. After 7 cycles of FOLFOX since 06/17/2024, his weight remains stable at 136 pounds with temporary taste changes post-treatment. Recent tests show negative Natira results and decreasing CEA levels (12.9), indicating positive treatment response. MRI revealed a stable liver nodule and kidney spot. Plan includes continuing FOLFOX, obtaining second opinion regarding liver lesion biopsy, liver MRI, and January cystoscopy with possible Lupron administration for prostate cancer. INTERVAL HISTORY: Patient is doing well. He is tolerating chemotherapy well. Chief Complaint Follow-up for colon cancer treatment, monitoring of liver lesion and kidney spot History of Present Illness Mr. Yeung is a male patient with a history of colon cancer diagnosed on 09/19/2023, currently undergoing FOLFOX chemotherapy. He has completed 7 cycles of treatment since starting on 06/17/2024. The patient's weight has remained stable at 136 pounds, which is close to his normal weight of 140 pounds. He reports experiencing taste changes during the first five days of each treatment cycle but maintains a good appetite otherwise. These taste changes do not appear to significantly impact his daily functioning or overall nutritional status. Mr. Yeung has been adhering to his prescribed chemotherapy regimen. Recent testing shows a negative Natira result, indicating no circulating cancer cells. His CEA level has decreased to 12.9 from previous higher levels, suggesting a positive response to treatment. In addition to his colon cancer, Mr. Yeung has a small prostate cancer that is being monitored. He is scheduled for a follow-up cystoscopy and biopsy in January, with the possibility of receiving a Lupron shot to prevent prostate cancer growth. Medical History - Colon cancer diagnosed on 09/19/2023 - Small prostate cancer, currently being monitored Medications and Supplements - FOLFOX (oxaliplatin) - Completed 7 cycles since 06/17/2024 - Causes taste changes during the first five days of treatment - Lupron (leuprolide for depot) - May be administered in the future Review of Systems General: Positive for taste changes during first five days of treatment. Negative for weight loss, with stable weight at 136 pounds. Gastrointestinal: Negative for decreased appetite. 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 Patient have a history of smoking for 10 years 3 to 4 cigarettes a day quit about 37 years ago and uses marijuana daily for last 20 years. Patient lives with his brother and [id number]. 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 Tumor site cecum 5 x 3.5 x 0.8 cm. Macroscopic tumor perforation not seen. Invasive adenocarcinoma low-grade invading into subserosal tissue. 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 amlodipine - 5 mg 1 tab Daily 2. atorvastatin - 40 mg 1 tab Daily 3. multivitamin - 1 tab Daily 4. tamsulosin - 0.4 mg 1 Capsule Daily Medications Last Reconciled by Krystin Xie MA on 09/17/2024 ALLERGIES: No Known Drug Allergies REVIEW OF SYSTEMS: A complete 14-point review of systems was performed and is negative except as noted in interval history. PHYSICAL EXAMINATION: VITAL SIGNS: Temperature?99.1, B/P?128/83, Oxygen?Saturation?99% Weight?135?lbs (Change?since?09/11/24:?-1.4?lbs) PAIN: 0 - No pain ECOG Performance Status: 0 - Asymptomatic and fully active GENERAL APPEARANCE: Appears well, in no apparent distress, appropriately interactive. HEENT: Normocephalic, no temporal wasting, normal conjunctiva, no scleral icterus, normal hearing, lips without lesions, neck normal range of motion. CARDIOVASCULAR: Not assessed. PULMONARY: Normal respiratory effort, no respiratory distress or use of accessory muscles, speaking in full sentences, no tachypnea. EXTREMITIES: No pedal edema or cyanosis. SKIN: Normal skin appearance. NEUROLOGIC: Alert and oriented x4. PSHYCHIATRIC: Appropriate affect, mood normal, behavior normal, intact thought and speech. LABORATORY DATA: I have personally reviewed and interpreted each of the patient?s relevant lab tests, abnormal findings are below: Date 08/25/24 09/08/24 ??WHITE?BLOOD?COUNT?(Thou/mm3) 4.9 5.9 ??RED?BLOOD?COUNT?(Miln/mm3) 3.40?L 3.40?L ??HEMOGLOBIN?(gm/dl) 10.8?L 11.0?L ??HEMATOCRIT?(%) 32.2?L 32.6?L ??PLATELET?COUNT?(Thou/mm3) 189 153 ??NEUTROPHILS?%,?AUTO?(%) 48 58 ??LYMPH?%,?AUTO?(%) 36 31 ??NEUTROPHILS,?AUTO?(Thou/mm3) 2.4 3.4 ??GLUCOSE,RANDOM?(mg/dL) ? 148?H ??BLOOD?UREA?NITROGEN?(mg/dL) ? 7?L ??CREATININE?(mg/dL) ? 0.80 ??SODIUM?(mmol/L) ? 138 ??POTASSIUM?(mmol/L) ? 3.5 ??CHLORIDE?(mmol/L) ? 103 ??CrCl?(CandG)?(ml/min) ? 80.44 ??AST/SGOT?(Unit/L) ? 38?H ??ALT/SGPT?(Unit/L) ? 51?H ??ALKALINE?PHOSPHATASE?(Unit/L) ? 92 ??BILIRUBIN,?TOTAL?(mg/dL) ? 0.4 ??PROTEIN?TOTAL?(gm/dl) ? 6.5 ??ALBUMIN,?SERUM?(gm/dl) ? 4.4 ??GLOBULIN?(gm/dl) ? 2.1?L ??ALBUMIN/GLOBULIN?RATIO ? 2.1 ??CALCIUM,?SERUM?(mg/dL) ? 9.3 ??CALCIUM?SERUM?(CORRECTED)?(mg/dL) ? 9.3 ??CEA?(O*)?(ng/ml) ? 12.9?H Vital Signs - Weight: 136 pounds Laboratory, Imaging, and Diagnostic Test Results - Natira testing: Negative (no circulating cancer cells) - MRI: - Small stable nodule in the liver - Spot on the kidney - CT scan: No lymphadenopathy observed - CEA levels: - Current: 12.9 - Previous results: 13, 11.3, 9.7, 6.2 (chronological order not specified) lesion ASSESSMENT/PLAN: #1 colon adenocarcinoma Patient have T3 N1 tumor CT abdomen showed renal mass which was biopsied to be renal cancer mFOLFOX 6 Oxaliplatin 85 mg/m2 IV, day 1a Leucovorin 400 mg/m2 IV, day 1b 5-FU 400 mg/m2 IV bolus on day 1, followed by 1200 mg/m2 /day x 2 days (total 2400 mg/m2 over 46?48 hours) continuous infusion. Repeat every 2 weeks.1 Colon Cancer Assessment: Patient was diagnosed with colon cancer on 09/19/2023 and has completed 7 cycles of FOLFOX (oxaliplatin) chemotherapy since 06/17/2024. Recent Natira testing is negative, indicating no circulating cancer cells. MRI shows a small stable nodule in the liver and a spot on the kidney. CT scan reveals no lymphadenopathy. CEA level is 12.9, down from previous levels of 6.2, 9.7, 11.3, and 13. Patient's weight is stable at 136 pounds, with a normal weight of 140 pounds. He experiences taste changes during the first five days of treatment but has a good appetite otherwise. Plan: - Continue FOLFOX chemotherapy - Monitor liver lesion - Refer to C for second opinion and potential biopsy of liver lesion - Order MRI of liver - Follow up with Dr. Ordonez at [facility] for further evaluation Prostate Cancer Assessment: Patient has a small prostate cancer that is currently being monitored. Plan: - Schedule follow-up cystoscopy and biopsy for January - Consider administering Lupron (leuprolide for depot) shot to prevent prostate cancer growth Kidney tumor Patient is probably getting partial nephrectomy done at [facility]. Will follow-up for pathology report ORDERS: Order # Description [id number] CBC + Comprehensive Metabolic Panel + CEA [id number] Lab Appointment [id number] Follow Up Appointment [id number] Infusion 5 Hours [id number] Discontinue CIV Pump [id number] CBC + Comprehensive Metabolic Panel + CEA [id number] Lab Appointment [id number] Follow Up Appointment [id number] Infusion 5 Hours [id number] Discontinue CIV Pump [id number] CBC + Comprehensive Metabolic Panel + CEA [id number] Lab Appointment [id number] Follow Up Appointment [id number] Infusion 5 Hours [id number] Discontinue CIV Pump [id number] CBC + Comprehensive Metabolic Panel + CEA [id number] Lab Appointment [id number] Follow Up Appointment [id number] Infusion 5 Hours [id number] Discontinue CIV Pump [id number] CBC + Comprehensive Metabolic Panel + CEA [id number] Lab Appointment [id number] Follow Up Appointment [id number] Infusion 5 Hours [id number] Discontinue CIV Pump [id number] CBC + Comprehensive Metabolic Panel + CEA [id number] Lab Appointment [id number] Follow Up Appointment RETURN TO CLINIC: BILLING AND COMPLIANCE: I reviewed external records from providers outside my specialty as summarized above. I spent a total of 50 minutes on this patient?s care on the day of their visit excluding time spent related to any billed procedures. This time includes time spent with the patient as well as time spent documenting in the medical record, reviewing patients records and tests, obtaining history, placing orders, communicating with other healthcare professionals, counseling the patient, family or caregiver, and/or care coordination for the diagnoses above. Electronically Signed by: Dhaval Guzman MD T: 10:23 AM CC: PCP: Chanelle Ramirez Referring: Chanelle Ramirez This document was completed utilizing speech recognition software. Grammatical errors, random word insertions, pronoun errors, and incomplete sentences are an occasional consequence of this system due to software limitations, ambient noise, and hardware issues. Any formal questions or concerns about the content, text or information contained within the body of this dictation should be directly addressed to the provider for clarification.
== END 2024-09-17 23:59 | disposition home or self-care (01) ==
LOC: SCTC 09:17
PROVIDERS: PCP Physician Assistant; Referring Provider Physician Assistant; Visit Provider Internal Medicine Hematology & Oncology
DX: Z51.11 Encounter for antineoplastic chemotherapy (principal); C18.0 Malignant neoplasm of cecum; C64.2 Malignant neoplasm of left kidney, except renal pelvis; C61 Malignant neoplasm of prostate; Z79.818 Long term (current) use of other agents affecting estrogen receptors and estrogen levels
CPT/HCPCS: 36591; 80053; 82378; 85025; 96366; 96367; 96368; 96411; 96413; 96415; 96416; 99212; A4216; J0640; J1100; J1453; J1642; J2405; J7050; J7060; J9190; J9263; G0463

== ENCOUNTER 2024-10-09 10:17 | Outpatient (RCR) | payer MEDICARE, MEDICAID, SELFPAY ==
[2024-09-22 08:54] LABS: Basophils % (Auto) 1 % (0-2.5); Eosinophils # (Auto) 0.1 Thou/mm3 (0.0-0.5); Eosinophils % (Auto) 2 % (0-10); Hematocrit 31.5 % (41.0-53.0); Hemoglobin 10.8 g/dL (13.5-16.0); Immature Granulocytes % (Auto) 0 % (0-0); Immature Granulocytes Auto 0.01 Thou/mm3 (0.00-0.00); Lymphocytes % (Auto) 31 % (10-50); Mean Corpuscular HGB Conc 34.3 g/dl (31.0-37.0); Mean Corpuscular Hemoglobin 32.5 pg (25.0-35.0); Mean Corpuscular Volume 95 fL (80-100); Monocytes # (Auto) 0.6 Thou/mm3 (0.0-0.8); Monocytes % (Auto) 10 % (0-12); Neutrophils # (Auto) 3.6 Thou/mm3 (1.8-7.7); Neutrophils % (Auto) 57 % (37-80); Nucleated Red Blood Cell % 0 /100 WBC (0); Platelet Count 111 Thou/mm3 (140-440); RDW Standard Deviation 68.3 fL (35.1-43.9); Red Blood Count 3.32 Miln/mm3 (4.50-5.90); White Blood Count 6.3 Thou/mm3 (3.8-10.6)
[2024-09-22 09:28] LABS: Alanine Aminotransferase 122 U/L (10-49); Albumin, Serum 4.3 gm/dL (3.4-4.8); Alkaline Phosphatase 91 U/L (46-116); Anion Gap 10 (7-16); Aspartate Amino Transferase 81 U/L (0-34); BUN/Creatinine Ratio 11 Ratio (12-20); Bilirubin,Total 0.5 mg/dL (0.3-1.2); Blood Urea Nitrogen 9 mg/dL (9-23); Calcium 9.1 mg/dL (8.3-10.6); Calcium (Corrected) 9.1 mg/dL (8.5-10.1); Carbon Dioxide 25.9 mMol/L (20.0-31.0); Chloride 105 mMol/L (98-107); Creatinine (Component) 0.8 mg/dL (0.6-1.3); Globulin 2.2 gm/dL (2.3-3.5); Glucose 140 mg/dL (74-106); Osmolality,Calculated 281 (275-295); Potassium 3.9 mMol/L (3.4-5.1); Sodium 141 mMol/L (136-145); Total Protein 6.5 gm/dL (5.7-8.2); eGFR > 60 See Note
[2024-10-06 08:32] LABS: Basophils % (Auto) 1 % (0-2.5); Eosinophils # (Auto) 0.1 Thou/mm3 (0.0-0.5); Eosinophils % (Auto) 2 % (0-10); Hematocrit 31.5 % (41.0-53.0); Hemoglobin 10.5 g/dL (13.5-16.0); Immature Granulocytes % (Auto) 0 % (0-0); Immature Granulocytes Auto 0.01 Thou/mm3 (0.00-0.00); Lymphocytes # (Auto) 1.6 Thou/mm3 (1.0-4.8); Lymphocytes % (Auto) 28 % (10-50); Mean Corpuscular HGB Conc 33.3 g/dl (31.0-37.0); Mean Corpuscular Hemoglobin 33.3 pg (25.0-35.0); Mean Corpuscular Volume 100 fL (80-100); Monocytes # (Auto) 0.6 Thou/mm3 (0.0-0.8); Monocytes % (Auto) 11 % (0-12); Neutrophils # (Auto) 3.3 Thou/mm3 (1.8-7.7); Neutrophils % (Auto) 58 % (37-80); Nucleated Red Blood Cell % 0 /100 WBC (0); Platelet Count 139 Thou/mm3 (140-440); RDW Standard Deviation 69.5 fL (35.1-43.9); Red Blood Count 3.15 Miln/mm3 (4.50-5.90); White Blood Count 5.6 Thou/mm3 (3.8-10.6)
[2024-10-06 08:55] LABS: Alanine Aminotransferase 134 U/L (10-49); Albumin, Serum 4.1 gm/dL (3.4-4.8); Alkaline Phosphatase 95 U/L (46-116); Anion Gap 11 (7-16); Aspartate Amino Transferase 78 U/L (0-34); BUN/Creatinine Ratio 9 Ratio (12-20); Bilirubin,Total 0.4 mg/dL (0.3-1.2); Blood Urea Nitrogen 7 mg/dL (9-23); Calcium 8.9 mg/dL (8.3-10.6); Calcium (Corrected) 8.9 mg/dL (8.5-10.1); Carbon Dioxide 26.4 mMol/L (20.0-31.0); Chloride 106 mMol/L (98-107); Creatinine (Component) 0.8 mg/dL (0.6-1.3); Globulin 2.1 gm/dL (2.3-3.5); Glucose 146 mg/dL (74-106); Osmolality,Calculated 285 (275-295); Potassium 3.9 mMol/L (3.4-5.1); Sodium 143 mMol/L (136-145); Total Protein 6.2 gm/dL (5.7-8.2); eGFR > 60 See Note
[2024-10-06 08:59] LABS: Carcinoembryonic Antigen 17.5 ng/mL (0.0-5.0)
== END 2024-10-18 23:59 | disposition home or self-care (01) ==
LOC: SCTC 10:17
PROVIDERS: PCP Physician Assistant; Referring Provider Physician Assistant; Visit Provider Internal Medicine Hematology & Oncology
DX: Z51.11 Encounter for antineoplastic chemotherapy (principal); C18.0 Malignant neoplasm of cecum; C61 Malignant neoplasm of prostate; C64.2 Malignant neoplasm of left kidney, except renal pelvis; K76.89 Other specified diseases of liver
CPT/HCPCS: 36591; 80053; 82378; 85025; 96367; 96368; 96411; 96413; 96415; 96416; A4216; J0640; J1100; J1453; J1642; J2405; J7050; J7060; J9190; J9263

== ENCOUNTER → 2024-10-29 | Outpatient (CLI) | payer MEDICARE, MEDICAID, SELFPAY ==
--- NOTE | 2024-10-29 14:15 | XR_ITS ---
Examination: MRI abdomen with intravenous contrast. MRI abdomen without intravenous contrast. Date and time of exam: October 29, 2024 1515 hours Comparison August 04, 2024 INDICATIONS: Diagnosis malignant neoplasm liver malignant neoplasm kidney, MRI abdomen August 04, 2024 10 mm enhancing lesion medial right lobe of the liver, enhancing mass anterior right lobe of the liver 17 mm Posterior enhancing solid mass left kidney 21 mm Technique: Multiple axial, sagittal and coronal sections of the abdomen obtained. Transverse images, TR 6020, TE 107. T1 weighted transverse images, TR 582, TE 9.5. T2-weighted sagittal images, TR 4000, TE 105. T2-weighted sagittal images, TR 4000, TE 5. Coronal images, TR 4210, TE 107. Axial and coronal images are obtained post when he cc intravenous injection, gadolinium. Findings: The very subtle enhancing lesion medial right lobe the liver, post contrast axial image 37 currently measures 16 mm There are multiple cystlike areas in the liver which do not show clear-cut enhancement On this study an anterior enhancing liver lesion is not depicted Spleen is not enlarged No pancreatic mass No adrenal mass Aorta normal size no abdominal lymphadenopathy Negative for ascites IMPRESSION: Very subtle enhancing mass medial right lobe of the liver measures 16 mm on this exam compared to 10 mm on August 04, 2024 MRI abdomen The additional liver lesions appear cystic with no clear-cut enhancement
--- NOTE | 2024-10-29 15:15 | XR_ITS ---
Examination: MRI pelvis with intravenous contrast. MRI pelvis without intravenous contrast. Date and time of exam: October 29, [address] chest abdomen pelvis August 20, 2024, MRI abdomen August 04, 2024 INDICATIONS: Diagnosis malignant neoplasm of the colon September 2023 also diagnosis prostate cancer, 13 mm enhancing left prostate nodule on CT pelvis August 20, 2024 Technique: Multiple axial, sagittal and coronal sections of the pelvis obtained. Transverse images, TR 6020, TE 107. T1 weighted transverse images, TR 582, TE 9.5. T2-weighted sagittal images, TR 4000, TE 105. T2-weighted sagittal images, TR 4000, TE 5. Coronal images, TR 4210, TE 107. Axial and coronal images are obtained post 20 cc intravenous injection, gadolinium. Findings: No common iliac and external iliac internal iliac or common femoral significant lymphadenopathy Normal seminal vesicles Transverse prostate dimension 4.3 cm Postcontrast images do not demonstrate enhancing prostate nodule Urinary bladder intact Homogeneous marrow signal visualized osseous structures IMPRESSION: No prostate nodule is confirmed Consider follow-up transrectal prostate sonography
== END | disposition home or self-care (01) ==
LOC: SMRI 14:16
PROVIDERS: PCP Physician Assistant; Referring Provider Internal Medicine Hematology & Oncology; Visit Provider Internal Medicine Hematology & Oncology
DX: R16.0 Hepatomegaly, not elsewhere classified (principal); C64.9 Malignant neoplasm of unspecified kidney, except renal pelvis; C18.9 Malignant neoplasm of colon, unspecified
CPT/HCPCS: 72197; 74183; A9579

== ENCOUNTER 2024-11-17 14:00 | Outpatient (RCR) | payer MEDICARE, MEDICAID, SELFPAY ==
[2024-10-20 16:30] LABS: Basophils % (Auto) 1 % (0-2.5); Eosinophils # (Auto) 0.1 Thou/mm3 (0.0-0.5); Eosinophils % (Auto) 2 % (0-10); Hematocrit 30.8 % (41.0-53.0); Hemoglobin 10.4 g/dL (13.5-16.0); Immature Granulocytes % (Auto) 0 % (0-0); Immature Granulocytes Auto 0.01 Thou/mm3 (0.00-0.00); Lymphocytes # (Auto) 2.1 Thou/mm3 (1.0-4.8); Lymphocytes % (Auto) 45 % (10-50); Mean Corpuscular HGB Conc 33.8 g/dl (31.0-37.0); Mean Corpuscular Hemoglobin 33.9 pg (25.0-35.0); Mean Corpuscular Volume 100 fL (80-100); Monocytes # (Auto) 0.4 Thou/mm3 (0.0-0.8); Monocytes % (Auto) 9 % (0-12); Neutrophils # (Auto) 2.1 Thou/mm3 (1.8-7.7); Neutrophils % (Auto) 44 % (37-80); Nucleated Red Blood Cell % 0 /100 WBC (0); Platelet Count 156 Thou/mm3 (140-440); RDW Standard Deviation 69.1 fL (35.1-43.9); Red Blood Count 3.07 Miln/mm3 (4.50-5.90); White Blood Count 4.7 Thou/mm3 (3.8-10.6)
[2024-10-20 16:46] LABS: Alanine Aminotransferase 45 U/L (10-49); Albumin, Serum 4.2 gm/dL (3.4-4.8); Albumin/Globulin Ratio 2.2 (1.2-2.2); Alkaline Phosphatase 90 U/L (46-116); Anion Gap 10 (7-16); Aspartate Amino Transferase 39 U/L (0-34); BUN/Creatinine Ratio 13 Ratio (12-20); Bilirubin,Total 0.4 mg/dL (0.3-1.2); Blood Urea Nitrogen 9 mg/dL (9-23); Calcium 9.2 mg/dL (8.3-10.6); Calcium (Corrected) 9.2 mg/dL (8.5-10.1); Carbon Dioxide 29.1 mMol/L (20.0-31.0); Chloride 105 mMol/L (98-107); Creatinine (Component) 0.7 mg/dL (0.6-1.3); Globulin 1.9 gm/dL (2.3-3.5); Glucose 138 mg/dL (74-106); Osmolality,Calculated 287 (275-295); Potassium 3.6 mMol/L (3.4-5.1); Sodium 144 mMol/L (136-145); Total Protein 6.1 gm/dL (5.7-8.2); eGFR > 60 See Note
[2024-10-20 16:48] LABS: Carcinoembryonic Antigen 13.8 ng/mL (0.0-5.0)
[2024-11-03 11:31] LABS: Basophils % (Auto) 1 % (0-2.5); Eosinophils % (Auto) 1 % (0-10); Hematocrit 30.4 % (41.0-53.0); Hemoglobin 10.3 g/dL (13.5-16.0); Immature Granulocytes % (Auto) 0 % (0-0); Immature Granulocytes Auto 0.01 Thou/mm3 (0.00-0.00); Lymphocytes % (Auto) 41 % (10-50); Mean Corpuscular HGB Conc 33.9 g/dl (31.0-37.0); Mean Corpuscular Hemoglobin 33.9 pg (25.0-35.0); Mean Corpuscular Volume 100 fL (80-100); Monocytes # (Auto) 0.7 Thou/mm3 (0.0-0.8); Monocytes % (Auto) 14 % (0-12); Neutrophils # (Auto) 2.1 Thou/mm3 (1.8-7.7); Neutrophils % (Auto) 44 % (37-80); Nucleated Red Blood Cell % 0 /100 WBC (0); Platelet Count 166 Thou/mm3 (140-440); RDW Standard Deviation 66.9 fL (35.1-43.9); Red Blood Count 3.04 Miln/mm3 (4.50-5.90); White Blood Count 4.9 Thou/mm3 (3.8-10.6)
[2024-11-03 11:49] LABS: Alanine Aminotransferase 39 U/L (10-49); Albumin, Serum 3.9 gm/dL (3.4-4.8); Alkaline Phosphatase 97 U/L (46-116); Anion Gap 8 (7-16); Aspartate Amino Transferase 36 U/L (0-34); BUN/Creatinine Ratio 7 Ratio (12-20); Bilirubin,Total 0.4 mg/dL (0.3-1.2); Blood Urea Nitrogen < 5 mg/dL (9-23); Calcium 9.1 mg/dL (8.3-10.6); Calcium (Corrected) 9.2 mg/dL (8.5-10.1); Carbon Dioxide 27.8 mMol/L (20.0-31.0); Carcinoembryonic Antigen 14.6 ng/mL (0.0-5.0); Chloride 106 mMol/L (98-107); Creatinine (Component) 0.7 mg/dL (0.6-1.3); Glucose 139 mg/dL (74-106); Osmolality,Calculated 282 (275-295); Potassium 3.6 mMol/L (3.4-5.1); Sodium 142 mMol/L (136-145); Total Protein 5.9 gm/dL (5.7-8.2); eGFR > 60 See Note
--- NOTE | 2024-11-11 12:50 | CTCFLWUP_ITS ---
Patient: CONCHITA YEUNG : 1960 Page 2 of 2 FOLLOW UP NOTE DATE OF SERVICE: 11/11/2024 NAME: CONCHITA YEUNG ACCOUNT: [id number] : 1960 AGE: 64 INTERVAL HISTORY: Patient is known colon cancer and on treatment with FOLFOX. Patient has completed 11 cycles of FOLFOX. Patient had previously underwent hemicolectomy Patient has been tolerating treatment well. He saw hepatobiliary surgeon for liver lesion and was advised that there is no suspicion for cancer even though MRI was concerning. Patient have no new and other complaints Review of Systems General: Positive for taste changes during first five days of treatment. 2 pound weight loss, weight today is at 130 pounds. Gastrointestinal: Negative for decreased appetite. 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 Patient have a history of smoking for 10 years 3 to 4 cigarettes a day quit about 37 years ago and uses marijuana daily for last 20 years. Patient lives with his brother and [id number]-[id number]. 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 Tumor site cecum 5 x 3.5 x 0.8 cm. Macroscopic tumor perforation not seen. Invasive adenocarcinoma low-grade invading into subserosal tissue. 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 amlodipine - 5 mg 1 tab Daily 2. atorvastatin - 40 mg 1 tab Daily 3. multivitamin - 1 tab Daily 4. tamsulosin - 0.4 mg 1 Capsule Daily Medications Last Reconciled by Krystin Xie MA on 11/11/2024 ALLERGIES: No Known Drug Allergies REVIEW OF SYSTEMS: A complete 14-point review of systems was performed and is negative except as noted in interval history. PHYSICAL EXAMINATION: VITAL SIGNS: Temperature?99, B/P?121/79, Oxygen?Saturation?98% Weight?130?lbs (Change?since?11/06/24:?-2.2?lbs) PAIN: 0 - No pain ECOG Performance Status: 0 - Asymptomatic and fully active GENERAL APPEARANCE: Appears well, in no apparent distress, appropriately interactive. HEENT: Normocephalic, no temporal wasting, normal conjunctiva, no scleral icterus, normal hearing, lips without lesions, neck normal range of motion. CARDIOVASCULAR: Not assessed. PULMONARY: Normal respiratory effort, no respiratory distress or use of accessory muscles, speaking in full sentences, no tachypnea. EXTREMITIES: No pedal edema or cyanosis. SKIN: Normal skin appearance. NEUROLOGIC: Alert and oriented x4. PSHYCHIATRIC: Appropriate affect, mood normal, behavior normal, intact thought and speech. LABORATORY DATA: I have personally reviewed and interpreted each of the patient?s relevant lab tests, abnormal findings are below: Date 10/20/24 11/03/24 ??WHITE?BLOOD?COUNT?(Thou/mm3) ? 4.9 ??RED?BLOOD?COUNT?(Miln/mm3) ? 3.04?L ??HEMOGLOBIN?(gm/dl) ? 10.3?L ??HEMATOCRIT?(%) ? 30.4?L ??PLATELET?COUNT?(Thou/mm3) ? 166 ??NEUTROPHILS?%,?AUTO?(%) ? 44 ??LYMPH?%,?AUTO?(%) ? 41 ??NEUTROPHILS,?AUTO?(Thou/mm3) ? 2.1 ??GLUCOSE,RANDOM?(mg/dL) 138?H 139?H ??BLOOD?UREA?NITROGEN?(mg/dL) 9 <?5?L ??CREATININE?(mg/dL) 0.70 0.70 ??SODIUM?(mmol/L) 144 142 ??POTASSIUM?(mmol/L) 3.6 3.6 ??CHLORIDE?(mmol/L) 105 106 ??CrCl?(CandG)?(ml/min) 90.44 88.84 ??AST/SGOT?(Unit/L) 39?H 36?H ??ALT/SGPT?(Unit/L) 45 39 ??ALKALINE?PHOSPHATASE?(Unit/L) 90 97 ??BILIRUBIN,?TOTAL?(mg/dL) 0.4 0.4 ??PROTEIN?TOTAL?(gm/dl) 6.1 5.9 ??ALBUMIN,?SERUM?(gm/dl) 4.2 3.9 ??GLOBULIN?(gm/dl) 1.9?L 2.0?L ??ALBUMIN/GLOBULIN?RATIO 2.2 2.0 ??CALCIUM,?SERUM?(mg/dL) 9.2 9.1 ??CALCIUM?SERUM?(CORRECTED)?(mg/dL) 9.2 9.2 ??CEA?(O*)?(ng/ml) ? 14.6?H ASSESSMENT/PLAN: #1 colon adenocarcinoma Patient have T3 N1 tumor CT abdomen showed renal mass which was biopsied to be renal cancer mFOLFOX 6 Oxaliplatin 85 mg/m2 IV, day 1a Leucovorin 400 mg/m2 IV, day 1b 5-FU 400 mg/m2 IV bolus on day 1, followed by 1200 mg/m2 /day x 2 days (total 2400 mg/m2 over 46?48 hours) continuous infusion. Repeat every 2 weeks.1 Colon Cancer Assessment: Patient was diagnosed with colon cancer on 09/19/2023 and has completed 7 cycles of FOLFOX (oxaliplatin) chemotherapy since 06/17/2024. Recent Natira testing is negative, indicating no circulating cancer cells. MRI shows a small stable nodule in the liver and a spot on the kidney. CT scan reveals no lymphadenopathy. CEA level is 12.9, down from previous levels of 6.2, 9.7, 11.3, and 13. Patient's weight is stable at 136 pounds, with a normal weight of 140 pounds. He experiences taste changes during the first five days of treatment but has a good appetite otherwise. Plan: - Continue FOLFOX chemotherapy for total 12 cycles - Monitor liver lesion. Will send for Archer to Dr. Paiz to get opinion on the liver lesion - Anatera has been negative Will follow on the second Matera testing Prostate Cancer Assessment: Patient has a small prostate cancer that is currently being monitored. Plan: - Schedule follow-up cystoscopy and biopsy for January - Consider administering Lupron (leuprolide for depot) shot to prevent prostate cancer growth Kidney tumor Patient is probably getting partial nephrectomy done at [facility]. Will follow-up for pathology report ORDERS: Order # Description [id number] CT Scan + Chest + Abdomen and Pelvis + With W/O Contrast [id number] Comprehensive Metabolic Panel - 12 + CBC with Auto Diff [id number] CBC + Comprehensive Metabolic Panel + CEA [id number] Lab Appointment [id number] Follow Up Appointment [id number] Infusion 5 Hours [id number] Discontinue CIV Pump [id number] CBC + Comprehensive Metabolic Panel + CEA [id number] Lab Appointment [id number] Follow Up Appointment RETURN TO CLINIC: 3 to 4 weeks BILLING AND COMPLIANCE: I reviewed external records from providers outside my specialty as summarized above. I spent a total of 50 minutes on this patient?s care on the day of their visit excluding time spent related to any billed procedures. This time includes time spent with the patient as well as time spent documenting in the medical record, reviewing patients records and tests, obtaining history, placing orders, communicating with other healthcare professionals, counseling the patient, family or caregiver, and/or care coordination for the diagnoses above. Electronically Signed by: Dhaval Guzman MD T: 12:48 PM CC: PCP: Chanelle Ramirez Referring: Chanelle Ramirez This document was completed utilizing speech recognition software. Grammatical errors, random word insertions, pronoun errors, and incomplete sentences are an occasional consequence of this system due to software limitations, ambient noise, and hardware issues. Any formal questions or concerns about the content, text or information contained within the body of this dictation should be directly addressed to the provider for clarification.
[2024-11-17 15:16] LABS: Basophils # (Auto) 0.1 Thou/mm3 (0.0-0.2); Basophils % (Auto) 1 % (0-2.5); Eosinophils # (Auto) 0.2 Thou/mm3 (0.0-0.5); Eosinophils % (Auto) 2 % (0-10); Hematocrit 32.2 % (41.0-53.0); Hemoglobin 10.9 g/dL (13.5-16.0); Immature Granulocytes % (Auto) 0 % (0-0); Immature Granulocytes Auto 0.01 Thou/mm3 (0.00-0.00); Lymphocytes # (Auto) 2.2 Thou/mm3 (1.0-4.8); Lymphocytes % (Auto) 34 % (10-50); Mean Corpuscular HGB Conc 33.9 g/dl (31.0-37.0); Mean Corpuscular Volume 100 fL (80-100); Monocytes % (Auto) 15 % (0-12); Neutrophils # (Auto) 3.1 Thou/mm3 (1.8-7.7); Neutrophils % (Auto) 47 % (37-80); Nucleated Red Blood Cell # 0.02 Thou/mm3 (0.00-0.00); Nucleated Red Blood Cell % 0 /100 WBC (0); Platelet Count 119 Thou/mm3 (140-440); RDW Standard Deviation 64.6 fL (35.1-43.9); Red Blood Count 3.21 Miln/mm3 (4.50-5.90); White Blood Count 6.5 Thou/mm3 (3.8-10.6)
[2024-11-17 15:36] LABS: Carcinoembryonic Antigen 15.7 ng/mL (0.0-5.0)
[2024-11-17 15:40] LABS: Alanine Aminotransferase 62 U/L (10-49); Albumin, Serum 4.2 gm/dL (3.4-4.8); Albumin/Globulin Ratio 1.8 (1.2-2.2); Alkaline Phosphatase 107 U/L (46-116); Anion Gap 8 (7-16); Aspartate Amino Transferase 48 U/L (0-34); BUN/Creatinine Ratio 6 Ratio (12-20); Bilirubin,Total 0.5 mg/dL (0.3-1.2); Blood Urea Nitrogen 5 mg/dL (9-23); Calcium 9.3 mg/dL (8.3-10.6); Calcium (Corrected) 9.3 mg/dL (8.5-10.1); Carbon Dioxide 27.4 mMol/L (20.0-31.0); Chloride 107 mMol/L (98-107); Creatinine (Component) 0.8 mg/dL (0.6-1.3); Globulin 2.3 gm/dL (2.3-3.5); Glucose 116 mg/dL (74-106); Osmolality,Calculated 281 (275-295); Sodium 142 mMol/L (136-145); Total Protein 6.5 gm/dL (5.7-8.2); eGFR > 60 See Note
== END 2024-11-17 23:59 | disposition home or self-care (01) ==
LOC: SCTC 14:00
PROVIDERS: PCP Physician Assistant; Referring Provider Physician Assistant; Visit Provider Internal Medicine Hematology & Oncology
DX: Z51.11 Encounter for antineoplastic chemotherapy (principal); C18.0 Malignant neoplasm of cecum; C64.2 Malignant neoplasm of left kidney, except renal pelvis; C61 Malignant neoplasm of prostate; Z90.49 Acquired absence of other specified parts of digestive tract; Z87.891 Personal history of nicotine dependence
CPT/HCPCS: 36591; 80053; 82378; 85025; 96367; 96368; 96411; 96413; 96415; 96416; 99212; A4216; J0640; J1100; J1453; J1642; J2405; J7050; J7060; J9190; J9263; G0463

== ENCOUNTER → 2024-12-09 | Outpatient (CLI) | payer MEDICARE, MEDICAID, SELFPAY ==
--- NOTE | 2024-12-09 08:30 | XR_ITS ---
Examination: CT chest with intravenous contrast CT abdomen with intravenous contrast CT pelvis with intravenous contrast CT chest without intravenous contrast CT abdomen without intravenous contrast CT pelvis without intravenous contrast 2-D coronal and sagittal reconstructions Time of exam: December 09, [address] chest abdomen pelvis August 20, 2024, MRI abdomen August 04, 2024, CT abdomen pelvis April 08, 2024 INDICATIONS: Diagnosis malignant neoplasm of the liver, colon liver kidney cancer one year, upper extremity paresthesias lower extremity numbness beginning November 2024 CTDI: vol (mGy) : 50.2 DLP: (mGycm): 896 Technique: Multiple axial images of the chest, abdomen and pelvis with intravenous contrast, 3.0 mm slice thickness. Images obtained post intravenous injection Isovue 370 60 cc. 2-D sagittal and coronal reconstructions. Low dose protocols were performed. One or more of the following dose reduction techniques were used; automated exposure control, adjustment of the mA and/or KV according to patient size, use of iterative reconstruction technique. Findings: No thoracic aortic aneurysm dilatation Pulmonary artery segments are not enlarged No paratracheal tracheobronchial or bronchopulmonary adenopathy Stable 2 mm pulmonary nodule right upper lobe compared with August 20, 2024 No interval pneumonia or pulmonary edema Multiple liver cysts Stable 10 mm enhancing lesion medial right lobe the liver The lesion anterior liver is stable and may represent fatty infiltration at the falciform ligament Spleen is not enlarged No pancreatic mass Minimal nodular thickening left adrenal gland Aorta normal size No interval abdominal or pelvic lymphadenopathy Stable 20 mm enhancing lesion posterior margin left kidney No bowel obstruction Colonic diverticulosis, diffuse wall thickening involving the sigmoid colon IMPRESSION: Stable 2 mm pulmonary nodule right upper lobe compared to CT chest August 20, 2024, no new pulmonary nodules Stable 10 mm enhancing lesion medial right lobe of the liver compared to CT chest abdomen August 20, 2024 No new enhancing liver lesions Stable enhancing solid mass posterior left kidney, 20 mm compared to 21 mm on MRI abdomen August 04, 2024 and compared to [address] abdomen April 08, 2024
== END | disposition home or self-care (01) ==
LOC: CCTX 08:15
PROVIDERS: PCP Physician Assistant; Referring Provider Internal Medicine Hematology & Oncology; Visit Provider Internal Medicine Hematology & Oncology
DX: R91.1 Solitary pulmonary nodule (principal); K76.9 Liver disease, unspecified
CPT/HCPCS: 71270; 74178; A4649; Q9967

== ENCOUNTER → 2025-01-28 | Outpatient (CLI) | payer MEDICARE, MEDICAID, SELFPAY ==
[2025-01-28 10:30] LABS: Basophils # (Auto) 0.1 Thou/mm3 (0.0-0.2); Basophils % (Auto) 1 % (0-2.5); Eosinophils # (Auto) 0.3 Thou/mm3 (0.0-0.5); Eosinophils % (Auto) 3 % (0-10); Hematocrit 39.0 % (41.0-53.0); Hemoglobin 12.8 g/dL (13.5-16.0); Immature Granulocytes Auto 0.03 Thou/mm3 (0.00-0.00); Lymphocytes # (Auto) 2.5 Thou/mm3 (1.0-4.8); Lymphocytes % (Auto) 29 % (10-50); Mean Corpuscular HGB Conc 32.8 g/dl (31.0-37.0); Mean Corpuscular Hemoglobin 34.0 pg (25.0-35.0); Mean Corpuscular Volume 103 fL (80-100); Monocytes # (Auto) 0.7 Thou/mm3 (0.0-0.8); Monocytes % (Auto) 8 % (0-12); Neutrophils # (Auto) 5.1 Thou/mm3 (1.8-7.7); Neutrophils % (Auto) 59 % (37-80); Nucleated Red Blood Cell # 0.00 Thou/mm3 (0.00-0.00); Nucleated Red Blood Cell % 0 /100 WBC (0); Platelet Count 265 Thou/mm3 (140-440); RDW Standard Deviation 51.0 fL (35.1-43.9); Red Blood Count 3.77 Miln/mm3 (4.50-5.90); White Blood Count 8.7 Thou/mm3 (3.8-10.6)
[2025-01-28 10:58] LABS: Alanine Aminotransferase 41 U/L (10-49); Albumin, Serum 4.7 gm/dL (3.4-4.8); Albumin/Globulin Ratio 2.4 (1.2-2.2); Alkaline Phosphatase 109 U/L (46-116); Anion Gap 10 (7-16); Aspartate Amino Transferase 37 U/L (0-34); BUN/Creatinine Ratio 10 Ratio (12-20); Bilirubin,Total 0.6 mg/dL (0.3-1.2); Blood Urea Nitrogen 8 mg/dL (9-23); Calcium 10.1 mg/dL (8.3-10.6); Calcium (Corrected) 10.1 mg/dL (8.5-10.1); Carbon Dioxide 30.5 mMol/L (20.0-31.0); Chloride 104 mMol/L (98-107); Creatinine (Component) 0.8 mg/dL (0.6-1.3); Globulin 2.0 gm/dL (2.3-3.5); Glucose 83 mg/dL (74-106); Osmolality,Calculated 284 (275-295); Potassium 4.4 mMol/L (3.4-5.1); Sodium 144 mMol/L (136-145); Total Protein 6.7 gm/dL (5.7-8.2); eGFR > 60 See Note
[2025-01-28 11:53] LABS: Carcinoembryonic Antigen 7.6 ng/mL (0.0-5.0)
== END | disposition home or self-care (01) ==
LOC: SCTO 09:04
PROVIDERS: PCP Physician Assistant; Referring Provider Internal Medicine Hematology & Oncology; Visit Provider Internal Medicine Hematology & Oncology
DX: C22.9 Malignant neoplasm of liver, not specified as primary or secondary (principal); C64.9 Malignant neoplasm of unspecified kidney, except renal pelvis; C18.9 Malignant neoplasm of colon, unspecified
CPT/HCPCS: 36415; 80053; 82378; 85025

== ENCOUNTER → 2025-03-11 | Outpatient (CLI) | payer MEDICARE, MEDICAID, SELFPAY ==
--- NOTE | 2025-03-11 09:03 | XR_ITS ---
Examination: Carotid arterial duplex scan, ultrasound. Date and time of exam: March 11, 2025, 0928 hours INDICATIONS: Dizziness episodes coinciding with chemotherapy treatment beginning 1 week ago Technique: Multiple sonographic images have been obtained of the carotid arteries and vertebral arteries, B-mode/grayscale imaging and Doppler spectral analysis and color flow Peak systolic and diastolic velocities have been recorded. Systolic diastolic ratios have been calculated. Findings: Right peak systolic velocities: Distal internal carotid artery peak systolic velocity is 0.6 M/sec Proximal internal carotid artery peak systolic velocity is 1.8 M/sec Carotid bifurcation peak systolic velocity is 1.0 M/sec External carotid artery peak systolic velocity is 1.1 M/sec Vertebral artery flow is antegrade. Left peak systolic velocities: Distal internal carotid artery peak systolic velocity is 0.8 M/sec Proximal internal carotid artery peak systolic velocity is 0.7 M/sec Carotid bifurcation peak systolic velocity is 0.7, M/sec External carotid artery peak systolic velocity is 1.0 M/sec Vertebral artery flow is antegrade Doppler waveform analysis demonstrates no spectral broadening Impression: Right internal carotid artery demonstrates 0 to 10% stenosis. Left internal carotid artery demonstrates 0 to 10% stenosis.
== END | disposition home or self-care (01) ==
PROVIDERS: PCP Physician Assistant; Referring Provider Physician Assistant; Visit Provider Physician Assistant
DX: N40.1 Benign prostatic hyperplasia with lower urinary tract symptoms (principal); I10 Essential (primary) hypertension; C18.9 Malignant neoplasm of colon, unspecified; E78.5 Hyperlipidemia, unspecified; C22.9 Malignant neoplasm of liver, not specified as primary or secondary; R55 Syncope and collapse; G62.0 Drug-induced polyneuropathy
CPT/HCPCS: 93880

== ENCOUNTER 2025-03-19 12:49 | Outpatient (RCR) | payer MEDICARE, MEDICAID, SELFPAY ==
[2025-03-18 09:51] LABS: Basophils # (Auto) 0.1 Thou/mm3 (0.0-0.2); Basophils % (Auto) 1 % (0-2.5); Eosinophils # (Auto) 0.3 Thou/mm3 (0.0-0.5); Eosinophils % (Auto) 3 % (0-10); Hematocrit 37.7 % (41.0-53.0); Hemoglobin 12.7 g/dL (13.5-16.0); Immature Granulocytes Auto 0.02 Thou/mm3 (0.00-0.00); Lymphocytes # (Auto) 2.2 Thou/mm3 (1.0-4.8); Lymphocytes % (Auto) 25 % (10-50); Mean Corpuscular HGB Conc 33.7 g/dl (31.0-37.0); Mean Corpuscular Hemoglobin 32.6 pg (25.0-35.0); Mean Corpuscular Volume 97 fL (80-100); Monocytes # (Auto) 0.6 Thou/mm3 (0.0-0.8); Monocytes % (Auto) 7 % (0-12); Neutrophils # (Auto) 5.7 Thou/mm3 (1.8-7.7); Neutrophils % (Auto) 65 % (37-80); Nucleated Red Blood Cell # 0.00 Thou/mm3 (0.00-0.00); Nucleated Red Blood Cell % 0 /100 WBC (0); Platelet Count 237 Thou/mm3 (140-440); RDW Standard Deviation 49.9 fL (35.1-43.9); Red Blood Count 3.89 Miln/mm3 (4.50-5.90); White Blood Count 8.8 Thou/mm3 (3.8-10.6)
[2025-03-18 10:08] LABS: Alanine Aminotransferase 32 U/L (10-49); Albumin, Serum 5.0 gm/dL (3.4-4.8); Albumin/Globulin Ratio 2.8 (1.2-2.2); Alkaline Phosphatase 97 U/L (46-116); Anion Gap 11 (7-16); Aspartate Amino Transferase 32 U/L (0-34); BUN/Creatinine Ratio 8 Ratio (12-20); Bilirubin,Total 0.7 mg/dL (0.3-1.2); Blood Urea Nitrogen 7 mg/dL (9-23); Calcium 9.6 mg/dL (8.3-10.6); Calcium (Corrected) 9.6 mg/dL (8.5-10.1); Carbon Dioxide 28.4 mMol/L (20.0-31.0); Chloride 105 mMol/L (98-107); Creatinine (Component) 0.9 mg/dL (0.6-1.3); Globulin 1.8 gm/dL (2.3-3.5); Glucose 115 mg/dL (74-106); Osmolality,Calculated 285 (275-295); Potassium 3.9 mMol/L (3.4-5.1); Sodium 144 mMol/L (136-145); Total Protein 6.8 gm/dL (5.7-8.2); eGFR > 60 See Note
[2025-03-18 10:11] LABS: Carcinoembryonic Antigen 7.0 ng/mL (0.0-5.0)
--- NOTE | 2025-04-06 06:21 | CTCFLWUP_ITS ---
Patient: CONCHITA YEUNG : 1960 Page 2 of 4 FOLLOW UP NOTE DATE OF SERVICE: 03/19/2025 NAME: CONCHITA YEUNG ACCOUNT: [id number] : 1960 AGE: 64 INTERVAL HISTORY: -- Patient is complaining of bilateral numbness and tingling in his hand and feet. Patient have completed chemotherapy with FOLFOX. Patient is following at [facility] for his kidney and bladder cancer. He is yet to see Dr. Paiz for his liver lesions. Otherwise doing well and is very active. 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 Patient have a history of smoking for 10 years 3 to 4 cigarettes a day quit about 37 years ago and uses marijuana daily for last 20 years. Patient lives with his brother and [id number]. 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 Tumor site cecum 5 x 3.5 x 0.8 cm. Macroscopic tumor perforation not seen. Invasive adenocarcinoma low-grade invading into subserosal tissue. 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 amlodipine - 5 mg 1 tab Daily 2. atorvastatin - 40 mg 1 tab Daily 3. DULoxetine - 20 mg 1 Capsule Daily 4. multivitamin - 1 tab Daily 5. tamsulosin - 0.4 mg 1 Capsule Daily Medications Last Reconciled by Krystin Blanc MD on 03/19/2025 ALLERGIES: No Known Drug Allergies REVIEW OF SYSTEMS: A complete 14-point review of systems was performed and is negative except as noted in interval history. PHYSICAL EXAMINATION: VITAL SIGNS: Temperature?98.7, B/P?119/78, Oxygen?Saturation?96% Weight?146?lbs (Change?since?03/18/25:?-0.8?lbs) PAIN: 2 - Mild pain ECOG Performance Status: 1 - Symptomatic; ambulatory; restricted in strenuous activity GENERAL APPEARANCE: Appears well, in no apparent distress, appropriately interactive. HEENT: Normocephalic, no temporal wasting, normal conjunctiva, no scleral icterus, normal hearing, lips without lesions, neck normal range of motion. CARDIOVASCULAR: Not assessed. PULMONARY: Normal respiratory effort, no respiratory distress or use of accessory muscles, speaking in full sentences, no tachypnea. EXTREMITIES: No pedal edema or cyanosis. SKIN: Normal skin appearance. NEUROLOGIC: Alert and oriented x4. PSHYCHIATRIC: Appropriate affect, mood normal, behavior normal, intact thought and speech. LABORATORY DATA: I have personally reviewed and interpreted each of the patient?s relevant lab tests, abnormal findings are below: Date 01/28/25 03/18/25 ??WHITE?BLOOD?COUNT?(Thou/mm3) 8.7 8.8 ??RED?BLOOD?COUNT?(Miln/mm3) 3.77?L 3.89?L ??HEMOGLOBIN?(gm/dl) 12.8?L 12.7?L ??HEMATOCRIT?(%) 39.0?L 37.7?L ??PLATELET?COUNT?(Thou/mm3) 265 237 ??NEUTROPHILS?%,?AUTO?(%) 59 65 ??LYMPH?%,?AUTO?(%) 29 25 ??NEUTROPHILS,?AUTO?(Thou/mm3) 5.1 5.7 ??GLUCOSE,RANDOM?(mg/dL) ? 115?H ??BLOOD?UREA?NITROGEN?(mg/dL) ? 7?L ??CREATININE?(mg/dL) ? 0.90 ??SODIUM?(mmol/L) ? 144 ??POTASSIUM?(mmol/L) ? 3.9 ??CHLORIDE?(mmol/L) ? 105 ??CrCl?(CandG)?(ml/min) ? 76.04 ??AST/SGOT?(Unit/L) ? 32 ??ALT/SGPT?(Unit/L) ? 32 ??ALKALINE?PHOSPHATASE?(Unit/L) ? 97 ??BILIRUBIN,?TOTAL?(mg/dL) ? 0.7 ??PROTEIN?TOTAL?(gm/dl) ? 6.8 ??ALBUMIN,?SERUM?(gm/dl) ? 5.0?H ??GLOBULIN?(gm/dl) ? 1.8?L ??ALBUMIN/GLOBULIN?RATIO ? 2.8?H ??CALCIUM,?SERUM?(mg/dL) ? 9.6 ??CALCIUM?SERUM?(CORRECTED)?(mg/dL) ? 9.6 ??CEA?(O*)?(ng/ml) ? 7.0?H ASSESSMENT/PLAN: #1 colon adenocarcinoma Patient have T3 N1 tumor CT abdomen showed renal mass which was biopsied to be renal cancer Liver wedge biopsy was negative in December 2023 mFOLFOX 6 Oxaliplatin 85 mg/m2 IV, day 1a Leucovorin 400 mg/m2 IV, day 1b 5-FU 400 mg/m2 IV bolus on day 1, followed by 1200 mg/m2 /day x 2 days (total 2400 mg/m2 over 46?48 hours) continuous infusion. Repeat every 2 weeks.1 Patient have completed chemotherapy with FOLFOX CT DNA testing negative for colon cancer as well as kidney cancer Weight is stable and patient is clinically doing well Will get opinion from Dr. Paiz for his liver lesions Advised to follow-up with [facility] for his prostate as well as kidney cancer Patient already have appointment for both prostate and kidney cancer appointment at [facility] Prostate Cancer Assessment: Patient has a small prostate cancer that is currently being monitored. Plan: - Schedule follow-up cystoscopy and biopsy for January - Consider administering Lupron (leuprolide for depot) shot to prevent prostate cancer growth Kidney tumor Patient is probably getting partial nephrectomy done at [facility]. Will follow-up for pathology report RTC in 3 months ORDERS: Order # Description [id number] CBC with Auto Diff + Comprehensive Metabolic Panel - 12 + CEA [id number] MD Follow Up 3 Months RETURN TO CLINIC: I reviewed the diagnosis, prognosis, and recommended treatment/procedure options with the patient (and/or their legal development representative), including the potential benefits, risks, side effects and alternative therapies. We also discussed the option of no treatment and the possibility of clinical trial participation, if applicable. All questions were addressed, and they demonstrated understanding. They provided informed consent to proceed with the proposed plan of care. BILLING AND COMPLIANCE: I reviewed external records from providers outside my specialty as summarized above. I spent a total of 50 minutes on this patient?s care on the day of their visit excluding time spent related to any billed procedures. This time includes time spent with the patient as well as time spent documenting in the medical record, reviewing patients records and tests, obtaining history, placing orders, communicating with other healthcare professionals, counseling the patient, family or caregiver, and/or care coordination for the diagnoses above. Electronically Signed by: Dhaval Guzman MD T: 6:18 AM CC: PCP: Chanelle Ramirez Referring: Chanelle Ramirez This document was completed utilizing speech recognition software. Grammatical errors, random word insertions, pronoun errors, and incomplete sentences are an occasional consequence of this system due to software limitations, ambient noise, and hardware issues. Any formal questions or concerns about the content, text or information contained within the body of this dictation should be directly addressed to the provider for clarification.
== END 2025-03-20 23:59 | disposition home or self-care (01) ==
LOC: SCTC 12:49
PROVIDERS: PCP Physician Assistant; Referring Provider Physician Assistant; Visit Provider Internal Medicine Hematology & Oncology
DX: C18.2 Malignant neoplasm of ascending colon (principal); C64.2 Malignant neoplasm of left kidney, except renal pelvis; C61 Malignant neoplasm of prostate; K76.89 Other specified diseases of liver
CPT/HCPCS: 36591; 80053; 82378; 85025; 99212; A4216; J1642; G0463

== ENCOUNTER → 2025-04-21 | Outpatient (BNVA) | payer MEDICARE, MEDICAID, SELFPAY | END | disposition home or self-care (01) | PROVIDERS: PCP Physician Assistant; Referring Provider Physician Assistant; Visit Provider Physician Assistant | DX: C61 Malignant neoplasm of prostate (principal); N28.89 Other specified disorders of kidney and ureter; I10 Essential (primary) hypertension; F17.210 Nicotine dependence, cigarettes, uncomplicated; Z71.6 Tobacco abuse counseling | CPT/HCPCS: Q3014 ==

== ENCOUNTER → 2025-05-18 | Outpatient (CLI) | payer MEDICARE, MEDICAID, SELFPAY ==
[2025-05-18 09:35] LABS: Basophils # (Auto) 0.1 Thou/mm3 (0.0-0.2); Basophils % (Auto) 1 % (0-2.5); Eosinophils # (Auto) 0.2 Thou/mm3 (0.0-0.5); Eosinophils % (Auto) 2 % (0-10); Hematocrit 42.1 % (41.0-53.0); Hemoglobin 13.8 g/dL (13.5-16.0); Immature Granulocytes Auto 0.02 Thou/mm3 (0.00-0.00); Lymphocytes # (Auto) 2.2 Thou/mm3 (1.0-4.8); Lymphocytes % (Auto) 28 % (10-50); Mean Corpuscular HGB Conc 32.8 g/dl (31.0-37.0); Mean Corpuscular Hemoglobin 32.2 pg (25.0-35.0); Mean Corpuscular Volume 98 fL (80-100); Monocytes # (Auto) 0.5 Thou/mm3 (0.0-0.8); Monocytes % (Auto) 6 % (0-12); Neutrophils # (Auto) 5.0 Thou/mm3 (1.8-7.7); Neutrophils % (Auto) 63 % (37-80); Nucleated Red Blood Cell # 0.00 Thou/mm3 (0.00-0.00); Nucleated Red Blood Cell % 0 /100 WBC (0); Platelet Count 281 Thou/mm3 (140-440); RDW Standard Deviation 51.2 fL (35.1-43.9); Red Blood Count 4.29 Miln/mm3 (4.50-5.90); White Blood Count 7.9 Thou/mm3 (3.8-10.6)
[2025-05-18 09:48] LABS: Alanine Aminotransferase 17 U/L (10-49); Albumin, Serum 4.6 gm/dL (3.4-4.8); Albumin/Globulin Ratio 1.6 (1.2-2.2); Alkaline Phosphatase 95 U/L (46-116); Anion Gap 8 (7-16); Aspartate Amino Transferase 20 U/L (0-34); BUN/Creatinine Ratio 8 Ratio (12-20); Bilirubin,Total 0.6 mg/dL (0.3-1.2); Blood Urea Nitrogen 7 mg/dL (9-23); Calcium 10.1 mg/dL (8.3-10.6); Calcium (Corrected) 10.1 mg/dL (8.5-10.1); Carbon Dioxide 29.9 mMol/L (20.0-31.0); Chloride 106 mMol/L (98-107); Creatinine (Component) 0.9 mg/dL (0.6-1.3); Globulin 2.8 gm/dL (2.3-3.5); Glucose 97 mg/dL (74-106); Osmolality,Calculated 284 (275-295); Potassium 4.3 mMol/L (3.4-5.1); Sodium 144 mMol/L (136-145); Total Protein 7.4 gm/dL (5.7-8.2); eGFR > 60 See Note
--- NOTE | 2025-05-18 10:00 | XR_ITS ---
Examination: CT chest with intravenous contrast CT abdomen with intravenous contrast CT pelvis with intravenous contrast 2-D coronal and sagittal reconstructions Time of exam: May 18, 2025, 1021 hours, comparison December 09, 2024 CT chest abdomen pelvis, MRI abdomen pre and postcontrast October 29, 2024, MRI pelvis pre and post contrast October 29, 2024 CTDI: vol (mGy) : 7.02 DLP: (mGycm): 547 Technique: Multiple axial images of the chest, abdomen and pelvis with intravenous contrast, 3.0 mm slice thickness. Images obtained post intravenous injection Isovue 370 60 cc. 2-D sagittal and coronal reconstructions. Low dose protocols were performed. One or more of the following dose reduction techniques were used; automated exposure control, adjustment of the mA and/or KV according to patient size, use of iterative reconstruction technique. Findings: No thoracic aortic aneurysm dilatation or dissection No pulmonary artery filling defects Moderate calcification left anterior descending coronary artery No mediastinal lymphadenopathy Stable 2 mm pulmonary nodule right upper lobe compared with December 09, 2024 No new pulmonary nodules No interval pneumonia, pulmonary edema or pleural disease Stable small benign liver cysts 14 mm enhancing lesion medial lower right lobe of the liver compared to 16 mm on MRI liver October 29, 2024 No new abnormal enhancing liver lesions No pancreatic mass Minor nodular thickening left adrenal gland Mildly enhancing posterior left renal lesion measures 21 mm compared to 20 mm on December 09, 2024 CT study No new enhancing liver lesions No interval abdominal or pelvic lymphadenopathy No bowel obstruction Colonic diverticulosis Transverse prostate dimension 4.9 cm Contracted urinary bladder with mild urinary bladder wall thickening IMPRESSION: Stable 2 mm pulmonary nodule right upper lobe compared with CT chest December 09, 2024 No new pulmonary nodules No interval pneumonia or pulmonary edema or pleural disease Again noted enhancing lesion medial right lobe of the liver, 14 mm on this study compared to 16 mm on MRI liver October 29, 2024 No new enhancing liver lesions. Posterior enhancing left renal lesion measures 21 mm compared to [address] abdomen December 09, 2024 No interval abdominal or pelvic lymphadenopathy Moderate prostatomegaly
== END | disposition home or self-care (01) ==
LOC: SCAT 09:27
PROVIDERS: PCP Physician Assistant; Referring Provider Internal Medicine Hematology & Oncology; Visit Provider Internal Medicine Hematology & Oncology
DX: C22.9 Malignant neoplasm of liver, not specified as primary or secondary (principal); C64.9 Malignant neoplasm of unspecified kidney, except renal pelvis; C18.9 Malignant neoplasm of colon, unspecified
CPT/HCPCS: 36415; 71260; 74177; 80053; 85025; A4649; Q9967